=== PATIENT | female | born 1960 | race Caucasian/White ===

== ENCOUNTER 2019-04-28 08:54 | Emergency (ER) | payer BC ==
[2019-04-28] MEDS ORDERED: NA CHLORIDE 0.9% 1,000 ML ONE (09:28)
[2019-04-28 09:58] LABS: Absolute Lymphocytes (CBC) 0.8 K/uL (0.7-4.9); Basophils % 0.3 % (0-1.3); Hematocrit 39.3 % (36.0-45.0); Lymphocytes % 6.7 % (15.3-44.8); RBC Red Blood Cell Count 4.35 M/uL (3.86-4.86)
[2019-04-28 10:12] LABS: Barbiturates NEGATIVE (NEGATIVE); Benzodiazepines NEGATIVE (NEGATIVE); Cocaine NEGATIVE (NEGATIVE); METHAMPHETAM NEGATIVE (NEGATIVE); Methadone NEGATIVE (NEGATIVE); Opiates NEGATIVE (NEGATIVE); Phencyclidine NEGATIVE (NEGATIVE); THC Cannibis NEGATIVE (NEGATIVE)
[2019-04-28 10:13] LABS: ALT/SGPT 36 U/L (12-78); AST/SGOT 51 U/L (15-37); Albumin 2.5 g/dL (3.4-5.0); Alkaline Phosphatase 160 U/L (45-117); BUN Blood Urea Nitrogen 18 mg/dL (7-18); Bicarbonate 26 mmol/L (21-32); Bilirubin Total 2.3 mg/dL (0.2-1.0); Glucose Level 168 mg/dL (74-106); Magnesium 1.7 mg/dL (1.8-2.4); NT PRO-BNP 165 pg/mL (<125); Potassium 3.2 mmol/L (3.5-5.1); Protein, Total 7.4 g/dL (6.4-8.2); Sodium Level 134 mmol/L (136-145); Troponin (Emerg Dept Use Only) < 0.02 ng/mL (0.0-0.045)
[2019-04-28] MEDS ORDERED: CIPROFLOXACIN HCL 500 MG TAB ONE (10:16)
[2019-04-28] MEDS ORDERED: CEFTRIAXONE/SWI 1gm 2 GM/20 ML SYR ONE (10:16)
[2019-04-28 10:21] LABS: Protime INR 1.44
--- NOTE | 2019-04-28 10:27 | RAD REPORT ---
EXAM DESCRIPTION: CT - [id number] - 04/28/2019 9:54 am CLINICAL HISTORY: Trauma, head and neck injury. PAIN COMPARISON: No comparisons TECHNIQUE: Axial 5 mm thick images of the head were obtained. Axial 2 mm thick images of the cervical spine were obtained with sagittal and coronal reconstruction images generated and reviewed. All CT scans are performed using dose optimization technique as appropriate and may include automated exposure control or mA/KV adjustment according to patient size. FINDINGS: CT HEAD WITHOUT CONTRAST: No acute hemorrhage, hydrocephalus or extra-axial collection is identified.No areas of brain edema or midline shift. The paranasal sinuses and mastoids are clear.The calvarium is intact. CT CERVICAL SPINE WITHOUT CONTRAST: No fracture or subluxation.Disc thinning with small endplate osteophyte noted at C5-6 and C6-7.No pre vertebral soft tissues swelling is identified. IMPRESSION: No acute intracranial or cervical spine findings. Mild lower cervical spondylosis.
[2019-04-28] MEDS ORDERED: POTASSIUM 25 MEQ EFFERV TAB ONE (10:33)
[2019-04-28] MEDS ORDERED: MAGNESIUM SULFATE 1 gm IVPB 1 GM/100 ML BAG IV ONE (10:33)
--- NOTE | 2019-04-28 10:34 | RAD REPORT ---
EXAM DESCRIPTION: RAD - Chest Single View - 04/28/2019 10:24 am CLINICAL HISTORY: COUGH Chest pain. COMPARISON: Chest Single View dated 03/23/2017; CHEST SINGLE VIEW dated 03/29/2010; CHEST SINGLE VIEW d ated 09/21/2009; CHEST SINGLE VIEW dated 09/18/2009 FINDINGS: Portable technique limits examination quality. The lungs are grossly clear. The heart is normal in size. No displaced fractures. IMPRESSION: No acute intrathoracic process suspected.
--- NOTE | 2019-04-28 10:35 | RAD REPORT ---
EXAM DESCRIPTION: RAD - Femur Left - 04/28/2019 10:24 am CLINICAL HISTORY: Fall, leg pain COMPARISON: None. FINDINGS: No fracture is identified. There is no dislocation or periosteal reaction noted. No acute or suspicious bony finding. No air or foreign body in the soft tissues. Mild degenerative change at the knee joint which is partially imaged. No significant hip joint degenerative change. No significant soft tissue finding identifiable. IMPRESSION: Negative left femur examination for acute finding.
--- NOTE | 2019-04-28 10:37 | RAD REPORT ---
EXAM DESCRIPTION: RAD - Tib Fib Left - 04/28/2019 10:24 am CLINICAL HISTORY: Fall, left leg pain COMPARISON: None. FINDINGS: No fracture is identified. There is no dislocation or periosteal reaction noted. No acute or suspicious bony finding. Patient has mild medial compartment marginal spurring with as well as spu rring along the articular margins of the patella. Patella femoral joint space is slightly narrowed. J oint effusion is not suspected at the knee. Patient has a small plantar spur. No foreign body or other soft tissue abnormality. IMPRESSION: Left knee joint degenerative changes are present without acute finding seen. No acute left tib-fib finding.
[2019-04-28 10:45] LABS: Urine Blood 3+ (NEG); Urine Glucose NEGATIVE (NEG); Urine Protein 2+ (NEG); Urine pH 5.5 (5.0-7.0)
[2019-04-28 10:45] LABS: Blood Morphology Comment NOT SEEN (NOT SEEN); Platelet Estimate ADEQ; Urine White Blood Cell Casts OK
--- NOTE | 2019-04-28 10:52 | EDPHYS ---
Physician Documentation [facility] Name: Lisa Chanel Age: 59 yrs Sex: Female : 1960 Arrival Date: 04/28/2019 Time: 08:57 Bed 15 Private MD: Emile Tim E ED Physician Louis Bustos HPI: 04/28 09:19 This 59 yrs old Female presents to ER via Ambulatory with complaints of Head florentin Injury-Adult. 09:19 The patient or guardian reports pain, swelling, tenderness. The complaints affect the florentin left side of the back of head, left occipital area, left base of the skull, right side of the back of head, right occipital area and right base of the skull. Context of injury: The problem was sustained at home, resulted from a fall. Onset: The symptoms/episode began/occurred 4 day(s) ago. Associated signs and symptoms: Loss of consciousness: This patient did not experience any loss of consciousness. Pertinent positives: headache, generalized weakness. Severity of symptoms: At their worst the symptoms were mild, in the emergency department the symptoms are unchanged. The patient has not experienced similar symptoms in the past. Historical: - Allergies: 09:08 Codeine; hb - Home Meds: 09:08 amphetamin/Dextramphet 10mg 1 tab twice a day [Active]; gabapentin 300 mg Oral cap 1 hb cap 3 times per day [Active]; levothyroxine 125 mcg tab 1 tab once daily [Active]; Plavix 75 mg Oral tab 1 tab once daily [Active]; sertraline 50 mg Oral tab 1 tab once daily [Active]; atorvastatin 40 mg Oral tab 1 tab once daily [Active]; - PMHx: 09:08 Diabetes - IDDM; High Cholesterol; Hypertension; neuropathy; TIA; hb - Immunization history:: Adult Immunizations up to date. - Social history:: Smoking status: Patient/guardian denies using tobacco. - Ebola Screening: : No symptoms or risks identified at this time. - Family history:: not pertinent. ROS: 09:19 Constitutional: Negative for fever, chills, and weight loss, Eyes: Negative for injury, florentin pain, redness, and discharge, ENT: Negative for injury, pain, and discharge, Neck: Negative for injury, pain, and swelling, Cardiovascular: Negative for chest pain, palpitations, and edema, Respiratory: Negative for shortness of breath, cough, wheezing, and pleuritic chest pain, Abdomen/GI: Negative for abdominal pain, nausea, vomiting, diarrhea, and constipation, Back: Negative for injury and pain, : Negative for injury, bleeding, discharge, and swelling, Skin: Negative for injury, rash, and discoloration, Psych: Negative for depression, anxiety, suicide ideation, homicidal ideation, and hallucinations, Allergy/Immunology: Negative for hives, rash, and allergies, Endocrine: Negative for neck swelling, polydipsia, polyuria, polyphagia, and marked weight changes, Hematologic/Lymphatic: Negative for swollen nodes, abnormal bleeding, and unusual bruising. 09:19 MS/extremity: Positive for decreased range of motion, pain, tenderness, of the left leg. 09:19 Neuro: Positive for dizziness, headache, weakness. Exam: 09:19 Constitutional: This is a well developed, well nourished patient who is awake, alert, florentin and in no acute distress. Eyes: Pupils equal round and reactive to light, extra-ocular motions intact. Lids and lashes normal. Conjunctiva and sclera are non-icteric and not injected. Cornea within normal limits. Periorbital areas with no swelling, redness, or edema. ENT: Nares patent. No nasal discharge, no septal abnormalities noted. Tympanic membranes are normal and external auditory canals are clear. Oropharynx with no redness, swelling, or masses, exudates, or evidence of obstruction, uvula midline. Mucous membranes moist. Neck: Trachea midline, no thyromegaly or masses palpated, and no cervical lymphadenopathy. Supple, full range of motion without nuchal rigidity, or vertebral point tenderness. No Meningismus. Chest/axilla: Normal chest wall appearance and motion. Nontender with no deformity. No lesions are appreciated. Cardiovascular: Regular rate and rhythm with a normal S1 and S2. No gallops, murmurs, or rubs. Normal PMI, no JVD. No pulse deficits. Respiratory: Lungs have equal breath sounds bilaterally, clear to auscultation and percussion. No rales, rhonchi or wheezes noted. No increased work of breathing, no retractions or nasal flaring. Abdomen/GI: Soft, non-tender, with normal bowel sounds. No distension or tympany. No guarding or rebound. No evidence of tenderness throughout. Back: No spinal tenderness. No costovertebral tenderness. Full range of motion. Female : Normal external genitalia. Skin: Warm, dry with normal turgor. Normal color with no rashes, no lesions, and no evidence of cellulitis. MS/ Extremity: Pulses equal, no cyanosis. Neurovascular intact. Full, normal range of motion. Neuro: Awake and alert, GCS 15, oriented to person, place, time, and situation. Cranial nerves II-XII grossly intact. Motor strength 5/5 in all extremities. Sensory grossly intact. Cerebellar exam normal. Normal gait. Psych: Awake, alert, with orientation to person, place and time. Behavior, mood, and affect are within normal limits. 09:19 Head/face: Noted is contusion, that is superficial, tenderness, that is mild, of the left side of the back of head, left occipital area, left base of the skull, right side of the back of head, right occipital area and right base of the skull. 12:41 Abdomen/GI: Inspection: abdomen appears normal, Bowel sounds: normal, Palpation: [facility] [place] abdomen is soft and non-tender, Liver: no appreciated palpable abnormalities, Hernia: not appreciated, no ascites. Vital Signs: 09:08 BP 101 / 69; Pulse 101; Resp 16; Temp 97.8; Pulse Ox 100% ; Weight 104.33 kg; Height 5 hb ft. 8 in. (172.72 cm); Pain 7/10; 11:00 BP 108 / 68; Pulse 99; Resp 16 S; Pulse Ox 100% on R/A; jl7 12:59 BP 110 / 71; Pulse 97; Resp 16 S; Pulse Ox 100% on R/A; jl7 09:08 Body Mass Index 34.97 (104.33 kg, 172.72 cm) hb Nichols Coma Score: 09:07 Eye Response: spontaneous(4). Verbal Response: oriented(5). Motor Response: obeys commands(6). Total: 15. 09:19 Eye Response: spontaneous(4). Verbal Response: oriented(5). Motor Response: obeys [facility] [place] commands(6). Total: 15. MDM: 09:01 Patient medically screened. [facility] [place] 09:22 Data reviewed: vital signs, nurses notes, lab test result(s), EKG, radiologic studies, [facility] [place] CT scan, plain films. 04/28 09:19 Order name: Basic Metabolic Panel; Complete Time: 10:27 [facility] [place] 04/28 09:19 Order name: CBC with Diff; Complete Time: 10:50 [facility] [place] 04/28 09:19 Order name: LFT's; Complete Time: 10:27 [facility] [place] 04/28 09:19 Order name: Magnesium; Complete Time: 10:27 [facility] [place] 04/28 09:19 Order name: NT PRO-BNP; Complete Time: 10:27 [facility] [place] 04/28 09:19 Order name: PT-INR; Complete Time: 10:50 [facility] [place] 04/28 09:19 Order name: Troponin (emerg Dept Use Only); Complete Time: 10:27 [facility] [place] 04/28 09:19 Order name: XRAY Chest (1 view); Complete Time: 10:50 [facility] [place] 04/28 09:19 Order name: CT Head C Spine; Complete Time: 10:50 [facility] [place] 04/28 09:19 Order name: UDS; Complete Time: 10:27 [facility] [place] 04/28 10:02 Order name: Urine Culture [facility] [place] 04/28 10:08 Order name: Urine Dipstick--Ancillary (enter results); Complete Time: 10:50 04/28 10:28 Order name: AMMONIA; Complete Time: 12:27 [facility] [place] 04/28 10:45 Order name: CBC Smear Scan; Complete Time: 10:50 EDMS 04/28 09:19 Order name: EKG; Complete Time: 09:20 [facility] [place] 04/28 09:19 Order name: Cardiac monitoring; Complete Time: 09:49 [facility] [place] 04/28 09:19 Order name: EKG - Nurse/Tech; Complete Time: 09:49 [facility] [place] 04/28 09:19 Order name: IV Saline Lock; Complete Time: 09:49 [facility] [place] 04/28 09:19 Order name: Labs collected and sent; Complete Time: 09:49 [facility] [place] 04/28 09:19 Order name: O2 Per Protocol; Complete Time: 09:49 [facility] [place] 04/28 09:19 Order name: O2 Sat Monitoring; Complete Time: 09:49 [facility] [place] 04/28 09:19 Order name: Tib Fib Left XRAY; Complete Time: 10:50 [facility] [place] 04/28 09:19 Order name: Femur Left XRAY; Complete Time: 10:50 [facility] [place] 04/28 09:19 Order name: Urine Dipstick-Ancillary (obtain specimen); Complete Time: 10:53 florentin Administered Medications: 10:20 Drug: NS 0.9% 500 ml Route: IV; Rate: bolus; Site: right antecubital; 7 10:50 Follow up: Response: No adverse reaction; IV Status: Completed infusion; IV Intake: jl7 500ml 10:50 Drug: Potassium Effervescent Tablet 25 mEq Route: PO; jl7 12:41 Follow up: Response: No adverse reaction 7 10:55 Drug: Rocephin 2 grams Route: IV; Rate: per protocol; Site: right antecubital; jl7 10:58 Follow up: Response: No adverse reaction; IV Status: Completed infusion jl7 11:05 Drug: Cipro 500 mg Route: PO; jl7 12:41 Follow up: Response: No adverse reaction jl7 11:05 Drug: Magnesium Sulfate 1 grams Route: IVPB; Infused Over: 1 hrs; Site: right [facility] antecubital; 12:05 Follow up: Response: No adverse reaction; IV Status: Completed infusion [facility] 12:05 Drug: NS 0.9% 1000 ml Route: IV; Rate: 125 ml/hr; Site: right antecubital; 7 13:00 Follow up: Response: No adverse reaction; IV Status: Completed infusion jl7 12:52 Drug: Lactulose 30 grams Volume: 45 ml; Route: PO; [facility] 13:03 Follow up: Response: No adverse reaction [facility] Disposition: 04/28/19 10:51 Discharged to Home. Impression: Fall due to bumping against object, Superficial injury of head, Strain of muscle, fascia and tendon at neck level, Pain in left leg, Type 1 diabetes mellitus, Urinary tract infection, site not specified, Hypokalemia, Hypomagnesemia, Encephalopathy, unspecified. - Condition is Stable. - Discharge Instructions: Potassium Content of Foods, Head Injury, Adult, Hypomagnesemia, Muscle Strain, Musculoskeletal Pain, Urinary Tract Infection, Adult, Hepatic Encephalopathy, Knee Pain, Urinary Tract Infection, Adult, [id number], Head Injury, Adult, [id number], Hypokalemia. - Prescriptions for Ibuprofen 600 mg Oral Tablet - take 1 tablet by ORAL route every 8 hours As needed take with food; 20 tablet. Cipro 500 mg Oral Tablet - take 1 tablet by ORAL route every 12 hours for 7 days; 14 tablet. Lactulose 10 gram/15 mL Oral Solution - take 30 milliliter by ORAL route once daily; 300 milliliter. - Medication Reconciliation Form, Thank You Letter, Antibiotic Education, Prescription Opioid Use, Family Work Release form. - Follow up: Emile Tim; When: 2 - 3 days; Reason: Recheck today's complaints, Continuance of care, Re-evaluation by your physician. Follow up: Cisco Asif MD; When: 2 - 3 days; Reason: Recheck today's complaints, Re-evaluation by your physician. - Problem is new. - Symptoms have improved. Signatures: Dispatcher [employer] EDMS Louis Bustos MD MD cha Baxter, Heather, RN RN Kavon Tay RN RN jl7 Corrections: (The following items were deleted from the chart) 10:53 10:51 04/28/2019 10:51 Discharged to Home. Impression: Fall due to bumping against florentin object; Superficial injury of head; Strain of muscle, fascia and tendon at neck level; Pain in left leg; Type 1 diabetes mellitus; Urinary tract infection, site not specified; Hypokalemia; Hypomagnesemia. Condition is Stable. Discharge Instructions: Head Injury, Adult, Muscle Strain, Musculoskeletal Pain, Knee Pain, Head Injury, Adult, [id number], Urinary Tract Infection, Adult, Urinary Tract Infection, Adult, [id number], Potassium Content of Foods, Hypomagnesemia, Hypokalemia. Prescriptions for Ibuprofen 600 mg Oral Tablet - take 1 tablet by ORAL route every 8 hours As needed take with food; 20 tablet, Cipro 500 mg Oral Tablet - take 1 tablet by ORAL route every 12 hours for 7 days; 14 tablet. and Forms are Medication Reconciliation Form, Thank You Letter, Antibiotic Education, Prescription Opioid Use. Follow up: Emile Tim; When: 2 - 3 days; Reason: Recheck today's complaints, Continuance of care, Re-evaluation by your physician. Problem is new. Symptoms have improved. [facility] [place] 12:34 10:53 04/28/2019 10:51 Discharged to Home. Impression: Fall due to bumping against florentin object; Superficial injury of head; Strain of muscle, fascia and tendon at neck level; Pain in left leg; Type 1 diabetes mellitus; Urinary tract infection, site not specified; Hypokalemia; Hypomagnesemia. Condition is Stable. Discharge Instructions: Head Injury, Adult, Muscle Strain, Musculoskeletal Pain, Knee Pain, Head Injury, Adult, [id number], Urinary Tract Infection, Adult, Urinary Tract Infection, Adult, [id number], Potassium Content of Foods, Hypomagnesemia, Hypokalemia. Prescriptions for Ibuprofen 600 mg Oral Tablet - take 1 tablet by ORAL route every 8 hours As needed take with food; 20 tablet, Cipro 500 mg Oral Tablet - take 1 tablet by ORAL route every 12 hours for 7 days; 14 tablet. and Forms are Medication Reconciliation Form, Thank You Letter, Antibiotic Education, Prescription Opioid Use. Follow up: Emile Tim; When: 2 - 3 days; Reason: Recheck today's complaints, Continuance of care, Re-evaluation by your physician. Follow up: Cisco Asif; When: 2 - 3 days; Reason: Recheck today's complaints, Re-evaluation by your physician. Problem is new. Symptoms have improved. florentin 13:07 12:34 04/28/2019 10:51 Discharged to Home. Impression: Fall due to bumping against jl7 object; Superficial injury of head; Strain of muscle, fascia and tendon at neck level; Pain in left leg; Type 1 diabetes mellitus; Urinary tract infection, site not specified; Hypokalemia; Hypomagnesemia; Encephalopathy, unspecified. Condition is Stable. Discharge Instructions: Head Injury, Adult, Muscle Strain, Musculoskeletal Pain, Knee Pain, Head Injury, Adult, [id number], Urinary Tract Infection, Adult, Urinary Tract Infection, Adult, [id number], Potassium Content of Foods, Hypomagnesemia, Hypokalemia. Prescriptions for Ibuprofen 600 mg Oral Tablet - take 1 tablet by ORAL route every 8 hours As needed take with food; 20 tablet, Cipro 500 mg Oral Tablet - take 1 tablet by ORAL route every 12 hours for 7 days; 14 tablet. and Forms are Medication Reconciliation Form, Thank You Letter, Antibiotic Education, Prescription Opioid Use. Follow up: Emile Tim; When: 2 - 3 days; Reason: Recheck today's complaints, Continuance of care, Re-evaluation by your physician. Follow up: Cisco Asfi; When: 2 - 3 days; Reason: Recheck today's complaints, Re-evaluation by your physician. Problem is new. Symptoms have improved. florentin
--- NOTE | 2019-04-28 10:52 | ER ---
Nurse's Notes [facility] Name: Lisa Chanel Age: 59 yrs Sex: Female : 1960 Arrival Date: 04/28/2019 Time: 08:57 Bed 15 Private MD: Emile Tim E Diagnosis: Fall due to bumping against object;Superficial injury of head;Strain of muscle, fascia and tendon at neck level;Pain in left leg;Type 1 diabetes mellitus;Urinary tract infection, site not specified;Hypokalemia;Hypomagnesemia;Encephalopathy, unspecified Presentation: 04/28 09:07 Presenting complaint: Hit head on toilet 3 days ago, c/o headache, dizziness, and hb blurred vision. Unknown LOC. Transition of care: patient was not received from another setting of care. Mechanism of Injury: resulted from a fall, from a standing position. Onset of symptoms was April 25, 2019. Risk Assessment: Do you want to hurt yourself or someone else? Patient reports no desire to harm self or others. Initial Sepsis Screen: Does the patient meet any 2 criteria? No. Patient's initial sepsis screen is negative. Does the patient have a suspected source of infection? No. Patient's initial sepsis screen is negative. Care prior to arrival: None. 09:07 Method Of Arrival: Ambulatory hb 09:07 Acuity: GUY 3 hb Historical: - Allergies: 09:08 Codeine; hb - Home Meds: 09:08 amphetamin/Dextramphet 10mg 1 tab twice a day [Active]; gabapentin 300 mg Oral cap 1 hb cap 3 times per day [Active]; levothyroxine 125 mcg tab 1 tab once daily [Active]; Plavix 75 mg Oral tab 1 tab once daily [Active]; sertraline 50 mg Oral tab 1 tab once daily [Active]; atorvastatin 40 mg Oral tab 1 tab once daily [Active]; - PMHx: 09:08 Diabetes - IDDM; High Cholesterol; Hypertension; neuropathy; TIA; hb - Immunization history:: Adult Immunizations up to date. - Social history:: Smoking status: Patient/guardian denies using tobacco. - Ebola Screening: : No symptoms or risks identified at this time. - Family history:: not pertinent. Screenin:09 Abuse screen: Denies threats or abuse. Denies injuries from another. Nutritional hb screening: No deficits noted. Tuberculosis screening: No symptoms or risk factors identified. 10:00 Fall Risk IV access (20 points). Total Chaney Fall Scale indicates No Risk (0-24 pts). jl7 Assessment: 09:30 General: Appears in no apparent distress. uncomfortable, Behavior is calm, cooperative, jl7 drowsy. Pain: Complains of pain in LACEY Pain does not radiate. Pain currently is 7 out of 10 on a pain scale. Quality of pain is described as aching, Pain began 2-3 days ago. Is continuous. Neuro: Level of Consciousness is awake, alert, obeys commands, Oriented to person, place, time, situation. Cardiovascular: Patient's skin is warm and dry. Respiratory: Airway is patent Respiratory effort is even, unlabored, Respiratory pattern is regular, symmetrical. Derm: Skin is pink, warm \T\ dry. 10:30 Reassessment: Patient appears in no apparent distress at this time. No changes from jl7 previously documented assessment. Patient and/or family updated on plan of care and expected duration. Pain level reassessed. Patient is alert, oriented x 3, equal unlabored respirations, skin warm/dry/pink. 11:05 Reassessment: Pt will be discharged once medication is done infusing. jl7 12:45 Reassessment: Pt awaiting ERD to discuss plan of care. jl7 12:50 Reassessment: Dr. Bustos at bedside discussing plan of care. jl7 Vital Signs: 09:08 BP 101 / 69; Pulse 101; Resp 16; Temp 97.8; Pulse Ox 100% ; Weight 104.33 kg; Height 5 hb ft. 8 in. (172.72 cm); Pain 7/10; 11:00 BP 108 / 68; Pulse 99; Resp 16 S; Pulse Ox 100% on R/A; jl7 12:59 BP 110 / 71; Pulse 97; Resp 16 S; Pulse Ox 100% on R/A; jl7 09:08 Body Mass Index 34.97 (104.33 kg, 172.72 cm) hb Juliette Coma Score: 09:07 Eye Response: spontaneous(4). Verbal Response: oriented(5). Motor Response: obeys hb commands(6). Total: 15. 09:19 Eye Response: spontaneous(4). Verbal Response: oriented(5). Motor Response: obeys florentin commands(6). Total: 15. ED Course: 08:57 Patient arrived in ED. as 08:57 Emile Tim MD is Private Physician. as 09:01 Louis Bustos MD is Attending Physician. florentin 09:08 Triage completed. hb 09:08 Arm band placed on. hb 09:23 Kavon Hernandez, RN is Primary Nurse. jl7 09:33 EKG done, by surfacing technician. reviewed by Louis Bustos MD. at1 09:55 CT Head C Spine In Process Unspecified. EDMS 09:58 Initial lab(s) drawn, by id, sent to lab. Urine collected: clean catch specimen, clear. kj1 Inserted saline lock: 22 gauge in right antecubital area, using aseptic technique. 10:00 Patient has correct armband on for positive identification. Placed in gown. Bed in low jl7 position. Call light in reach. Side rails up X2. ekg monitor on. Pulse ox on. NIBP on. Warm blanket given. 10:23 XRAY Chest (1 view) In Process Unspecified. EDMS 10:23 Tib Fib Left XRAY In Process Unspecified. EDMS 10:23 Femur Left XRAY In Process Unspecified. EDMS 10:51 Emile Tim MD is Referral Physician. florentin 10:52 Cisco Asif MD is Referral Physician. florentin 13:06 No provider procedures requiring assistance completed. IV discontinued, intact, jl7 bleeding controlled, No redness/swelling at site. Pressure dressing applied. Administered Medications: 10:20 Drug: NS 0.9% 500 ml Route: IV; Rate: bolus; Site: right antecubital; jl7 10:50 Follow up: Response: No adverse reaction; IV Status: Completed infusion; IV Intake: jl7 500ml 10:50 Drug: Potassium Effervescent Tablet 25 mEq Route: PO; jl7 12:41 Follow up: Response: No adverse reaction jl7 10:55 Drug: Rocephin 2 grams Route: IV; Rate: per protocol; Site: right antecubital; jl7 10:58 Follow up: Response: No adverse reaction; IV Status: Completed infusion jl7 11:05 Drug: Cipro 500 mg Route: PO; jl7 12:41 Follow up: Response: No adverse reaction jl7 11:05 Drug: Magnesium Sulfate 1 grams Route: IVPB; Infused Over: 1 hrs; Site: right 7 antecubital; 12:05 Follow up: Response: No adverse reaction; IV Status: Completed infusion 12:05 Drug: NS 0.9% 1000 ml Route: IV; Rate: 125 ml/hr; Site: right antecubital; jl7 13:00 Follow up: Response: No adverse reaction; IV Status: Completed infusion 12:52 Drug: Lactulose 30 grams Volume: 45 ml; Route: PO; jl7 13:03 Follow up: Response: No adverse reaction jl Intake: 10:50 IV: 500ml; Total: 500ml. Outcome: 10:51 Discharge ordered by . florentin 13:06 Discharged to home via wheelchair, with family. [facility] 13:06 Condition: stable 13:06 Discharge instructions given to patient, Instructed on discharge instructions, follow up and referral plans. medication usage, Demonstrated understanding of instructions, follow-up care, medications, Prescriptions given X 3. 13:07 Patient left the ED. Signatures: Dispatcher [employer] EDMS Louis Bustos MD MD cha Martinez, Amelia as Gonzales, Amanda, gallery or museum guide EKG Tat1 Za Solis RN RN hb Leal, Jahala, RN RN jl7 Nurys Snell kj1 Corrections: (The following items were deleted from the chart) 12:40 12:37 Response: No adverse reaction; IV Status: Completed infusion [facility]
--- NOTE | 2019-04-28 12:12 | EKG ---
Test Date: 2019-04-28 Test Time: 09:26:17 Coil Winder Hand: JENNIFER MEASUREMENT RESULTS: Intervals: Rate: 91 SC: 150 QRSD: 106 QT: 390 QTc: 479 Wendel: P: 1 SC: 150 QRS: -51 T: 61 INTERPRETIVE STATEMENTS: Normal sinus rhythm Left anterior fascicular block Moderate voltage criteria for LVH, may be normal variant Abnormal ECG Compared to ECG 03/23/2017 14:44:23 Left ventricular hypertrophy now present Myocardial infarct finding no longer present Electronically Signed On 04-28-19 12:10:11 CDT by Michael Alex
[2019-04-28] MEDS ORDERED: LACTULOSE 20 GM/30 ML UCUP ONE (12:33)
[2019-04-28 13:14] VITALS: TEMP 97.8; O2SAT 100
[2019-04-28 13:17] VITALS: BP 110/71
== END 2019-04-28 13:07 | disposition home or self-care (01) ==
LOC: ER 08:54
DX: S00.90XA Unspecified superficial injury of unspecified part of head, initial encounter (principal); S16.1XXA Strain of muscle, fascia and tendon at neck level, initial encounter; M79.605 Pain in left leg; N39.0 Urinary tract infection, site not specified; E87.6 Hypokalemia; E83.42 Hypomagnesemia; G93.40 Encephalopathy, unspecified; W19.XXXA Unspecified fall, initial encounter; Y93.9 Activity, unspecified; Y92.009 Unspecified place in unspecified non-institutional (private) residence as the place of occurrence of the external cause; I10 Essential (primary) hypertension; E78.00 Pure hypercholesterolemia, unspecified; Z79.01 Long term (current) use of anticoagulants; Z88.5 Allergy status to narcotic agent
CPT/HCPCS: 93005; 87088; 85025; 87086; 80048; 36415; 82140; 83735; 85610; 80076; 80307 ×8; 81003; 84484; 83880; 70450; 72125; 71045; 73552; 73590; J3475; J0696; J7030; 87077; 87186; 96361; 96365; 96375; 99284

== ENCOUNTER 2021-01-19 10:56 | Inpatient (IN) | payer BC ==
[2021-01-19 11:41] LABS: Absolute Lymphocytes (CBC) 0.5 K/uL (0.7-4.9)
[2021-01-19 11:45] LABS: Protime INR 1.49
[2021-01-19 11:49] LABS: Basophils % 0.6 % (0-1.3); Hematocrit 29.2 % (36.0-45.0); Lymphocytes % 28.7 % (15.3-44.8); MPV 9.4 fL (7.6-11.3); RBC Red Blood Cell Count 3.27 M/uL (3.86-4.86)
--- NOTE | 2021-01-19 11:58 | RAD REPORT ---
EXAM DESCRIPTION: RAD - Chest Single View - 01/19/2021 11:46 am CLINICAL HISTORY: DYSPNEA COMPARISON: April 2019 TECHNIQUE: AP portable chest image was obtained 01/19/2021 11:46 am . FINDINGS: Interstitial and alveolar opacities are present in the lower lung self with prominent up per lung field interstitial opacification. Cardiomegaly is present, increased from the prior study. V ascular engorgement is seen. Trachea is midline. No pneumothorax seen. Left pleural effusion is ident ifiable. No acute bony abnormality seen. No acute aortic findings suspected. IMPRESSION: Chest findings favor CHF/volume overload. The extensive airspace opacification could indicate acute infection. COVID-19 pneumonia cannot be exc luded in this current clinical environment.
[2021-01-19 12:09] LABS: Albumin 2.4 g/dL (3.4-5.0); Bilirubin Direct 1.2 mg/dL (0-0.2); Bilirubin Total 2.6 mg/dL (0.2-1.0); C-Reactive Protein 32.3 mg/L (<3.00); Potassium 3.5 mmol/L (3.5-5.1); Protein, Total 6.9 g/dL (6.4-8.2); Troponin (Emerg Dept Use Only) 0.12 ng/mL (0.0-0.045)
--- NOTE | 2021-01-19 12:30 | EDPHYS ---
Physician Documentation [facility] Name: Lisa Chanel Age: 60 yrs Sex: Female : 1960 Arrival Date: 01/19/2021 Time: 10:59 Bed 23 Private MD: ED Physician Ryland Holland HPI: 01/19 12:44 This 60 yrs old Female presents to ER via Wheelchair with complaints of jr8 Breathing Difficulty. 12:44 The patient has shortness of breath at rest. Onset: The symptoms/episode began/occurred jr8 gradually, 1 week(s) ago, and became worse and became persistent. Duration: The symptoms are continuous. The patient's shortness of breath is aggravated by light activity, walking. Associated signs and symptoms: Pertinent positives: non-productive cough, fever. Severity of symptoms: At their worst the symptoms were moderate in the emergency department the symptoms are unchanged. The patient has not experienced similar symptoms in the past. The patient has not recently seen a physician. Stated that her family all had COVID. Was around them and started to feel symptomatic about one week ago. Now progressively getting worse . Historical: - Allergies: 11:13 Codeine; sv - PMHx: 11:13 Diabetes - IDDM; High Cholesterol; Hypertension; neuropathy; TIA; Asthma; sv - Immunization history:: Client reports having NOT received the Covid vaccine. - Social history:: Smoking status: Patient denies any tobacco usage or history of. ROS: 12:44 Eyes: Negative for injury, pain, redness, and discharge, ENT: Negative for injury, jr8 pain, and discharge, Neck: Negative for injury, pain, and swelling, Cardiovascular: Negative for chest pain, palpitations, and edema, Abdomen/GI: Negative for abdominal pain, nausea, vomiting, diarrhea, and constipation, Back: Negative for injury and pain, MS/Extremity: Negative for injury and deformity, Skin: Negative for injury, rash, and discoloration, Neuro: Negative for headache, weakness, numbness, tingling, and seizure. 12:44 Constitutional: Positive for body aches, chills, fever, malaise. 12:44 Respiratory: Positive for cough, with no reported sputum, shortness of breath, wheezing. Exam: 12:44 Eyes: Pupils equal round and reactive to light, extra-ocular motions intact. Lids and jr8 lashes normal. Conjunctiva and sclera are non-icteric and not injected. Cornea within normal limits. Periorbital areas with no swelling, redness, or edema. ENT: Nares patent. No nasal discharge, no septal abnormalities noted. Tympanic membranes are normal and external auditory canals are clear. Oropharynx with no redness, swelling, or masses, exudates, or evidence of obstruction, uvula midline. Mucous membranes moist. Neck: Trachea midline, no thyromegaly or masses palpated, and no cervical lymphadenopathy. Supple, full range of motion without nuchal rigidity, or vertebral point tenderness. No Meningismus. Cardiovascular: Regular rate and rhythm with a normal S1 and S2. No gallops, murmurs, or rubs. Normal PMI, no JVD. No pulse deficits. Abdomen/GI: Soft, non-tender, with normal bowel sounds. No distension or tympany. No guarding or rebound. No evidence of tenderness throughout. Back: No spinal tenderness. No costovertebral tenderness. Full range of motion. Skin: Warm, dry with normal turgor. Normal color with no rashes, no lesions, and no evidence of cellulitis. MS/ Extremity: Pulses equal, no cyanosis. Neurovascular intact. Full, normal range of motion. Neuro: Awake and alert, GCS 15, oriented to person, place, time, and situation. Motor strength 5/5 in all extremities. Sensory grossly intact. 12:44 Respiratory: mild respiratory distress is noted, Respirations: tachypnea, that is moderate, Breath sounds: rales, that are mild, are located in both bases. Vital Signs: 11:10 BP 137 / 59; Pulse 86; Resp 42; Pulse Ox 87% on R/A; Weight 105.23 kg; Height 5 ft. 9 ca1 in. (175.26 cm); Pain 8/10; 11:41 BP 135 / 55; Pulse 76; Resp 26; Temp 98.8; Pulse Ox 100% on 4 lpm NC; ca1 12:49 Pulse 79; Resp 26; Pulse Ox 98% on 2 lpm NC; ca1 12:54 BP 127 / 58; ca1 13:55 BP 133 / 71; Pulse 77; Resp 24; Pulse Ox 100% on 2 lpm NC; ca1 14:55 BP 116 / 68; Pulse 81; Resp 20; Pulse Ox 99% on R/A; ca1 16:11 BP 106 / 60; Pulse 76; Resp 19 S; Pulse Ox 99% on 2 lpm NC; ca1 11:10 Body Mass Index 34.26 (105.23 kg, 175.26 cm) ca1 11:10 Pt placed on O2 per NC. ca1 MDM: 11:05 Patient medically screened. [facility] 12:44 Data reviewed: vital signs, nurses notes, lab test result(s), EKG, radiologic studies, [facility] CT scan, plain films. Data interpreted: Pulse oximetry: on room air is 80 %. Interpretation: hypoxia. Plan: O2 by NC applied. Counseling: I had a detailed discussion with the patient and/or guardian regarding: the historical points, exam findings, and any diagnostic results supporting the discharge/admit diagnosis, lab results, radiology results, the need for further work-up and treatment in the hospital. 01/19 11:15 Order name: BMP [facility] 01/19 11:15 Order name: Blood Culture Adult (2) [facility] 01/19 11:15 Order name: C-Reactive Protein; Complete Time: 12:19 [facility] 01/19 11:15 Order name: CBC with Diff; Complete Time: 13:24 01/19 11:15 Order name: D-Dimer; Complete Time: 12:08 [facility] 01/19 11:15 Order name: Ferritin; Complete Time: 12:19 01/19 11:15 Order name: Flu; Complete Time: 12:41 01/19 11:15 Order name: LFT's; Complete Time: 12:19 [facility] 01/19 11:15 Order name: Lactate; Complete Time: 12:08 01/19 11:15 Order name: PT-INR; Complete Time: 12:08 01/19 11:15 Order name: Procalcitonin; Complete Time: 13:13 01/19 11:15 Order name: Ptt, Activated; Complete Time: 12:08 01/19 11:15 Order name: Troponin (emerg Dept Use Only); Complete Time: 12:19 01/19 11:15 Order name: CXR XRAY; Complete Time: 12:08 [facility] 01/19 11:15 Order name: EKG; Complete Time: 11:16 01/19 11:15 Order name: Cardiac monitoring; Complete Time: 11:30 8 01/19 11:16 Order name: Basic Metabolic Panel; Complete Time: 12:19 EDMS 01/19 11:16 Order name: Blood Culture EDNM 01/19 11:40 Order name: Glucose, Ancillary Testing; Complete Time: 12:08 EDMS 01/19 11:52 Order name: Manual Differential; Complete Time: 13:24 EDMS 01/19 12:09 Order name: CT Chest For PE Angio; Complete Time: 12:56 8 01/19 13:11 Order name: SARS-COV-2 RT PCR; Complete Time: 13:13 EDMS 01/19 13:13 Order name: Echo w/ Doppler jr 01/19 14:08 Order name: Urine Dipstick-Ancillary; Complete Time: 14:11 EDMS 01/19 14:11 Order name: CONS Physician Consult EDNM 01/19 15:59 Order name: Lactate Sepsis 2 HR Follow-up; Complete Time: 16:13 EDNM 01/19 11:15 Order name: Droplet/Contact Precautions; Complete Time: 11:30 [facility] 01/19 11:15 Order name: EKG - Nurse/Tech; Complete Time: 11:39 8 01/19 11:15 Order name: IV Start; Complete Time: 11:30 8 01/19 11:15 Order name: Labs collected and sent; Complete Time: 11:30 8 01/19 11:15 Order name: O2 Per Protocol; Complete Time: 11:30 8 01/19 11:15 Order name: O2 Sat Monitoring; Complete Time: 11:30 [facility] 01/19 11:15 Order name: Urine Dipstick-Ancillary (obtain specimen); Complete Time: 16:37 jr8 Administered Medications: 12:53 Drug: SOLU-Medrol (methylPrednisoLONE) 125 mg Route: IVP; Site: right antecubital; ca1 14:18 Follow up: Response: No adverse reaction ca1 12:54 Drug: Lovenox (enoxaparin) 1 mg/kg Route: Sub-Q; Site: right lower abdomen; ca1 14:18 Follow up: Response: No adverse reaction ca1 13:31 Drug: Lasix (furosemide) 40 mg Route: IVP; Site: right antecubital; ca1 14:19 Follow up: Response: No adverse reaction ca1 Disposition: 18:21 Co-signature as Attending Physician, Ryland Holland MD. rn Disposition Summary: 01/19/21 12:29 Hospitalization Ordered Hospitalization Status: Inpatient Admission jr8 Provider: Salvador Holland Condition: Fair jr8 Problem: new jr8 Symptoms: have improved jr8 Bed/Room Type: Standard jr8 Location: Telemetry/MedSurg (Inpatient)(01/19/21 16:31) Room Assignment: [facility](01/19/21 16:31) Diagnosis - Pneumonia due to SARS-associated coronavirus jr8 - Acute respiratory failure with hypoxia jr8 Forms: - Medication Reconciliation Form jr8 - SBAR form jr8 Signatures: Dispatcher [employer] EDMS Irene Fall, RN RN Ryland Holland MD MD rn Smirch, Shelby, RN RN Neil Lopez PA PA jr8 Adali, JEREMÍAS Vazquez RN ca1 Corrections: (The following items were deleted from the chart) 11:30 11:15 Rodriguez ordered. jr8 ca1 12:08 11:16 CORONAVIRUS+MR.LAB.BRZ ordered. EDMS EDMS 15:38 12:29 Telemetry/MedSurg (Inpatient) jr8 ss 15:38 12:29 jr8 ss 16:31 15:38 [facility] ER HOLD ss ss 16:31 15:38 ERHOLD- ss ss
--- NOTE | 2021-01-19 12:30 | ER ---
Nurse's Notes [facility] Name: Lisa Chanel Age: 60 yrs Sex: Female : 1960 Arrival Date: 01/19/2021 Time: 10:59 Bed 23 Private MD: Diagnosis: Pneumonia due to SARS-associated coronavirus;Acute respiratory failure with hypoxia Presentation: 01/19 11:10 Chief complaint: Patient states: SOB, runny nose, fever, missael lung pain, and productive sv cough x 2 days. Family members recently tested COVID+. Coronavirus screen: Client denies travel out of the [place] in the last 14 days. Client presents with at least one sign or symptom that may indicate coronavirus-19. Standard/surgical mask placed on the client. Provider contacted for isolation considerations. Ebola Screen: No symptoms or risks identified at this time. Initial Sepsis Screen: Does the patient meet any 2 criteria? RR > 20 per min. No. Patient's initial sepsis screen is negative. Does the patient have a suspected source of infection? Yes: Productive cough/pneumonia. Risk Assessment: Do you want to hurt yourself or someone else? Patient reports no desire to harm self or others. Onset of symptoms was January 17, 2021. 11:10 Method Of Arrival: Wheelchair sv 11:10 Acuity: GUY 2 sv Triage Assessment: 11:13 General: Appears in no apparent distress. uncomfortable, Behavior is calm, cooperative, sv appropriate for age. Pain: Complains of pain in back. Neuro: Level of Consciousness is awake, alert, obeys commands, Oriented to person, place, time, situation. Respiratory: Reports shortness of breath at rest on exertion cough that is productive, Respiratory effort is even, Respiratory pattern is tachypnea Onset: The symptoms/episode began/occurred 2 days ago, the patient has moderate shortness of breath. Historical: - Allergies: 11:13 Codeine; sv - PMHx: 11:13 Diabetes - IDDM; High Cholesterol; Hypertension; neuropathy; TIA; Asthma; sv - Immunization history:: Client reports having NOT received the Covid vaccine. - Social history:: Smoking status: Patient denies any tobacco usage or history of. Screenin:40 Abuse screen: Denies threats or abuse. Denies injuries from another. Nutritional ca1 screening: No deficits noted. Tuberculosis screening: No symptoms or risk factors identified. Fall Risk IV access (20 points). Total Chaney Fall Scale indicates No Risk (0-24 pts). Assessment: 11:14 Reassessment: Code Sepsis called. sv 11:44 General: Appears distressed, uncomfortable, obese, Behavior is calm, cooperative, ca1 appropriate for age. Pain: Complains of pain in back, R ear Pain currently is 6 out of 10 on a pain scale. Pain began 2-3 days ago. Neuro: Level of Consciousness is awake, alert, obeys commands, Oriented to person, place, time, situation. Cardiovascular: Heart tones S1 S2 present Capillary refill < 3 seconds Patient's skin is warm and dry. Rhythm is sinus rhythm. Respiratory: Airway is patent Respiratory effort is even, labored, shallow, Respiratory pattern is regular, symmetrical, tachypnea Breath sounds are clear bilaterally. GI: Abdomen is round obese, Bowel sounds present X 4 quads. Abd is soft and non tender X 4 quads. : No signs and/or symptoms were reported regarding the genitourinary system. EENT: Reports pain in right ear. Derm: Skin is intact, is healthy with good turgor, Skin is pink, warm \T\ dry. Musculoskeletal: Circulation, motion, and sensation intact. Capillary refill < 3 seconds. 12:00 Respiratory: Airway is patent Respiratory effort is even, unlabored, Respiratory ca1 pattern is regular, symmetrical. 12:00 Reassessment: Patient appears in no apparent distress at this time. Patient and/or ca1 family updated on plan of care and expected duration. Pain level reassessed. Patient is alert, oriented x 3, equal unlabored respirations, skin warm/dry/pink. General: Appears in no apparent distress. comfortable, Behavior is. 12:49 Reassessment: Patient appears in no apparent distress at this time. Patient and/or ca1 family updated on plan of care and expected duration. Pain level reassessed. Patient is alert, oriented x 3, equal unlabored respirations, skin warm/dry/pink. 14:17 Reassessment: Patient appears in no apparent distress at this time. Patient and/or ca1 family updated on plan of care and expected duration. Pain level reassessed. Patient is alert, oriented x 3, equal unlabored respirations, skin warm/dry/pink. Guest Request Runner at bedside. Reassessment:. 15:30 Reassessment: Patient appears in no apparent distress at this time. Patient and/or ca1 family updated on plan of care and expected duration. Pain level reassessed. Patient is alert, oriented x 3, equal unlabored respirations, skin warm/dry/pink. Patient states feeling better. Patient states symptoms have improved. Vital Signs: 11:10 BP 137 / 59; Pulse 86; Resp 42; Pulse Ox 87% on R/A; Weight 105.23 kg; Height 5 ft. 9 ca1 in. (175.26 cm); Pain 8/10; 11:41 BP 135 / 55; Pulse 76; Resp 26; Temp 98.8; Pulse Ox 100% on 4 lpm NC; ca1 12:49 Pulse 79; Resp 26; Pulse Ox 98% on 2 lpm NC; ca1 12:54 BP 127 / 58; ca1 13:55 BP 133 / 71; Pulse 77; Resp 24; Pulse Ox 100% on 2 lpm NC; ca1 14:55 BP 116 / 68; Pulse 81; Resp 20; Pulse Ox 99% on R/A; ca1 16:11 BP 106 / 60; Pulse 76; Resp 19 S; Pulse Ox 99% on 2 lpm NC; ca1 11:10 Body Mass Index 34.26 (105.23 kg, 175.26 cm) ca1 11:10 Pt placed on O2 per NC. ca1 ED Course: 10:59 Patient arrived in ED. rg4 11:05 Neil Lopez PA is PHCP. jr8 11:05 Ryland Holland MD is Attending Physician. jr8 11:12 Triage completed. sv 11:13 Arm band placed on. sv 11:25 Inserted saline lock: 22 gauge in right antecubital area, using aseptic technique. ca1 Blood collected. 11:25 Initial lab(s) drawn, by me, sent to lab. First set of blood cultures drawn by me. ca1 11:29 Taylor Bro, JEREMÍAS is Primary Nurse. ca1 11:30 Second set of blood cultures drawn by lab staff. ca1 11:40 Patient has correct armband on for positive identification. Placed in gown. Bed in low ca1 position. Call light in reach. Side rails up X2. mortgage protection specialist on. Pulse ox on. NIBP on. Warm blanket given. Head of bed elevated. 11:46 CXR XRAY In Process Unspecified. EDMS 12:28 Salvador Holland MD is Hospitalizing Provider. jr8 12:44 CT Chest For PE Angio In Process Unspecified. EDMS 15:41 Repeat lab(s) drawn. by me, sent to lab. ca1 15:41 No provider procedures requiring assistance completed. Patient admitted, IV remains in ca1 place. Administered Medications: 12:53 Drug: SOLU-Medrol (methylPrednisoLONE) 125 mg Route: IVP; Site: right antecubital; ca1 14:18 Follow up: Response: No adverse reaction ca1 12:54 Drug: Lovenox (enoxaparin) 1 mg/kg Route: Sub-Q; Site: right lower abdomen; ca1 14:18 Follow up: Response: No adverse reaction ca1 13:31 Drug: Lasix (furosemide) 40 mg Route: IVP; Site: right antecubital; ca1 14:19 Follow up: Response: No adverse reaction ca1 Outcome: 12:29 Decision to Hospitalize by Provider. jr8 16:11 Admitted to ER Hold. Please see [facility] for further documentation. ca1 16:11 Condition: stable 16:11 Instructed on the need for admit. 16:48 Admitted to Tele accompanied by tech, via wheelchair, room 402, with oxygen, with ca1 chart, Report called to JEREMÍAS Schaeffer 17:00 Patient left the ED. ca1 Signatures: Dispatcher [employer] EDIrene David, RN RN Neil Lopez PA PA jr8 Hilaria Rivera rg4 Taylor Bro RN RN ca1 Corrections: (The following items were deleted from the chart) 11:13 11:10 BP 137 / 59; Pulse 86bpm; Resp 42bpm; Pulse Ox 87% RA; 105.23 kg; Height 5 ft. 9 sv in.; BMI: 34.2; Pain 8/10; sv 12:49 11:44 Respiratory: Airway is patent Respiratory effort is even, unlabored, Respiratory ca1 pattern is regular, symmetrical, Breath sounds are clear bilaterally. ca1 12:49 12:48 Reassessment: Patient appears in no apparent distress at this time. Patient ca1 and/or family updated on plan of care and expected duration. Pain level reassessed. Patient is alert, oriented x 3, equal unlabored respirations, skin warm/dry/pink. ca1 12:49 12:48 Respiratory: Airway is patent Respiratory effort is even, unlabored, Respiratory ca1 pattern is regular, symmetrical, ca1 12:49 12:48 General: Appears in no apparent distress. comfortable, Behavior is ca1 ca1 16:07 11:10 BP 137 / 59; Pulse 86bpm; Resp 42bpm; Pulse Ox 87% RA; 105.23 kg; Height 5 ft. 9 ca1 in.; BMI: 34.2; Pain 8/10; Pt placed on O2 per NC.; sv 16:56 16:48 Admitted to Tele accompanied by tech, via wheelchair, room 403, with oxygen, with ca1 chart, Report called to Laury RN ca1
--- NOTE | 2021-01-19 12:54 | RAD REPORT ---
EXAM DESCRIPTION: CT - Chest For Pe Angio - 01/19/2021 12:44 pm CLINICAL HISTORY: Chest pain. DYSPNEA COMPARISON: Chest For Pe Angio dated 03/23/2017; Chest Single View dated 01/19/2021; Chest Single View d ated 04/28/2019 TECHNIQUE: CT angiogram of the pulmonary arteries was performed with MIP. All CT scans are performed using dose optimization technique as appropriate and may include automated exposure control or mA/KV adjustment according to patient size. FINDINGS: No evidence of pulmonary thromboembolism. No acute aortic finding demonstrated. Extensive ground-glass lung opacities are present with atelectasis in both lung bases. Small bilateral pleural effusions. No concerning bony finding. IMPRESSION: No evidence of pulmonary thromboembolism. Small bilateral pleural effusions with extensive bilateral ground-glass lung opacities. CHF is a poss ibility, as is underlying COVID-19 infection.
[2021-01-19] MEDS ORDERED: ENOXAPARIN 100 MG/ML SYR SQ ONE (13:12)
[2021-01-19] MEDS ORDERED: METHYLPREDNISOLONE 125 MG INJ ONE (13:12)
[2021-01-19 13:22] LABS: Blood Morphology Comment NOT SEEN (NOT SEEN); Platelet Estimate DECR
[2021-01-19] MEDS ORDERED: FUROSEMIDE 40 MG/4 ML VIAL ONE (13:49)
[2021-01-19 14:09] LABS: Urine Blood 2+ (Negative); Urine Glucose Negative (Negative); Urine Protein Negative (Negative); Urine pH 5.5 (5.0-7.0)
--- NOTE | 2021-01-19 14:22 | P.HP ---
Certification for Inpatient Patient admitted to: Inpatient With expected LOS: >2 Midnights Practitioner: I am a practitioner with admitting privileges, knowledge of patient current condition, hospital course, and medical plan of care. Services: Services provided to patient in accordance with Admission requirements found in Title 42 Section 412.3 of the Code of Federal Regulations Patient History Date of Service: 01/19/21 Reason for admission: hypoxia, COVID-19 History of Present Illness: 60yoF, PMH: HTN, HLD, DM2 (diet controlled), TIA, asthma Presents to ED due to 1-2 weeks of progressively worsening shortness of breath, intermittent chest pain. Over last few days, symptoms have gotten significantly worse. Dyspnea with minimal exertion. Found to be hypoxic 80% on RA, COVID-19+, flu b+, CT chest negative for PE, + small b/l pleural effusions, pancytopenia. Pt reports feeling slightly better with O2. Otherwise, denies fever/chills, no new abdominal pain, no change in bowel/urine habits. Reports daughter and her family have been COVID+ recently / symptomatic. Not vaccinated. Reports chronic b/l neuropathy hands/legs, chronic diarrhea with intermittent rectal bleed. Chest pain in substernal, worsening over last few days, with exertion. Reports rectal bleed has been going on for years, intermittently, told by her physician ok as long as bright red blood and not old blood, unsure if she has h/o hemorrhoids. Allergies codeine Adverse Reaction (Verified 03/23/17 17:51) Itching Home Medications: Amphet Asp/Amphet/D-Amphet [Adderall 30 mg Tablet] 10 mg PO BID 03/23/17 Atorvastatin Calcium 40 mg pe PO DAILY 03/23/17 Clopidogrel Bisulfate [Plavix*] 75 mg PO DAILY 03/23/17 Gabapentin [Neurontin*] 300 mg PO TID 03/23/17 Levothyroxine [Synthroid*] 0.125 mg PO DAILY 03/23/17 Sertraline HCl 50 mg PO DAILY 03/23/17 Insulin Detemir [Levemir Flextouch] 10 unit SQ BEDTIME #1 ml 03/24/17 lisinopriL [Lisinopril] 5 mg PO DAILY #30 tablet 03/24/17 Insulin Detemir [Levemir] 26 units SQ DAILY 03/25/17 Pantoprazole [Protonix Tab] 40 mg PO DAILY #30 tab 03/25/17 - Past Medical/Surgical History -: Hypertension -: Hyperlipidemia -: Diabetes -: TIA -: Hypothyroidism -: Depression -: Neuropathy -: Osteoarthritis -: Cholecystectomy -: Knee surgery - Family History Father -: Heart disease Mother -: Heart disease ( age 52 from [place]) Brother -: Heart disease Sister -: Heart disease - Social History Smoking Status: Never smoker Alcohol use: No CD- Drugs: No Place of Residence: Home Review of Systems 10-point ROS is otherwise unremarkable Physical Examination - Physical Exam General: Alert, Moderate distress HEENT: Sclerae nonicteric Respiratory: Diminished, Crackles/rales (bilaterally) Cardiovascular: Regular rate/rhythm, Normal S1 S2, Edema (trace bilateral lower extremities), Systolic murmur Capillary refill: <2 Seconds Gastrointestinal: Soft and benign, Non-distended, Tenderness (mild RLQ) Integumentary: No rashes, No significant lesion Neurological: Normal speech, Normal strength at 5/5 x4 extr, Normal affect - Studies Laboratory Data (last 24 hrs) 01/19/21 11:30: PT 17.2 H, INR 1.49, APTT 36.1 01/19/21 11:30: WBC 1.60 L*, Hgb 9.5 L, Hct 29.2 L, Plt Count 54 L 01/19/21 11:30: Sodium 140, Potassium 3.5, BUN 13, Creatinine 0.72, Glucose 92, Total Bilirubin 2.6 H, AST 117 H, ALT 50, Alkaline Phosphatase 117 Microbiology Data (last 24 hrs): 01/19/21 11:35 Nasopharnyx Influenza Type A Antigen Screen - Final 01/19/21 11:35 Nasopharnyx Influenza Type B Antigen Screen - Final Assessment and Plan - Advance Directives Does patient have a Living Will: No Does patient have a Durable POA for Healthcare: No Physician Review Additional Text: Problem List Chest Pain, elevated troponin COVID-19 Influenza B + acute hypoxemic respiratory failure secondary to COVID-19 infection possible acute / new-onset CHF Exacerbation Hypothyroidism DM2, non-insulin dependent h/o TIA Pancytopenia Anemia, chronic steroids, vitamin supplementation, O2 as needed Tamiflu ordered does not appear to have sepsis/severe sepsis, elevated lactate likely from significant hypoxia from COVID-[address] negative for PE, +pleural effusions s/p IV 40mg lasix in ED, continue with 20 mg IV lasix echo ordered - eval function, murmur cardiology consulted, ACS rule out, trend trop h/o GI bleed - reports intermittent bright red blood per rectum for 3-4 years, told ok as long as bright red blood per her doctor, last bled ~3 months ago with thrombocytopenia - avoid anticoagulation, SCDs ordered obtain/confirm home medications accucheks, SSI, lantus as needed; expect steroid induced hyperglycemia low suspicion for bacterial superinfection, no antibiotics at this time VTE: SCDs Code: full Dispo: anticipate hospitalization >2 days Time Spent Managing Pts Care (In Minutes): 70
[2021-01-19] MEDS ORDERED: PNEUMOCOCCAL VACCINE 0.5 ML IMVAC ONE (17:00)
[2021-01-19] MEDS ORDERED: ONDANSETRON 4 MG/2 ML VIAL IV PRN (17:50)
[2021-01-19] MEDS: INSULIN -REGULAR HUMAN 50 UNIT/0.5 ML ML SQ SCH ×2 (17:50→21:00)
[2021-01-19] MEDS: ASCORBIC ACID 500 MG TABLET PO SCH ×2 (19:51→21:00)
[2021-01-19] MEDS: OSELTAMIVIR 75 MG CAP PO SCH (19:51)
[2021-01-19] MEDS: FAMOTIDINE 20 MG TAB PO SCH (19:51)
[2021-01-19] MEDS: FUROSEMIDE 20 MG/ 2ML VIAL IV SCH (19:52)
[2021-01-19] MEDS: METHYLPREDNISOLONE 125 MG INJ IV SCH (19:52)
[2021-01-19] MEDS: THIAMINE 200 MG/2 ML INJ IVP SCH (19:53)
[2021-01-20] MEDS: METHYLPREDNISOLONE 125 MG INJ IV SCH ×3 (00:24→17:14)
[2021-01-20] MEDS: ACETAMINOPHEN 500 MG TAB PO PRN (02:51)
[2021-01-20 03:39] LABS: Absolute Lymphocytes (CBC) 0.2 K/uL (0.7-4.9); Basophils % 0.2 % (0-1.3); Hematocrit 24.7 % (36.0-45.0); Lymphocytes % 17.6 % (15.3-44.8); MPV 9.7 fL (7.6-11.3); RBC Red Blood Cell Count 2.77 M/uL (3.86-4.86)
[2021-01-20 04:20] LABS: Albumin 1.8 g/dL (3.4-5.0); Bilirubin Total 2.1 mg/dL (0.2-1.0); Magnesium 1.5 mg/dL (1.8-2.4); Phosphorus 3.2 mg/dL (2.5-4.9); Potassium 3.5 mmol/L (3.5-5.1); Protein, Total 5.8 g/dL (6.4-8.2)
[2021-01-20 04:21] LABS: C-Reactive Protein 30.6 mg/L (<3.00)
[2021-01-20 04:36] LABS: Ferritin 110.1 ng/mL (8-388)
[2021-01-20] MEDS: INSULIN -REGULAR HUMAN 50 UNIT/0.5 ML ML SQ SCH ×4 (07:30→21:00)
--- NOTE | 2021-01-20 07:31 | RAD REPORT ---
EXAM DESCRIPTION: RAD - Chest Single View - 01/20/2021 6:45 am CLINICAL HISTORY: hypoxia, Covid, chf COMPARISON: Chest Single View dated 01/19/2021; Chest Single View dated 04/28/2019; Chest Single View dated 03/23/2017; CHEST SINGLE VIEW dated 03/29/2010 FINDINGS: Similar cardiomegaly. Diffuse prominence of the pulmonary interstitium with areas of more patchy nodularity No acute osseous abnormality. Suspect left pleural effusion overall, findings are m inimally improved compared with 01/19/2021. IMPRESSION: Mild improved aeration compared with 01/19/2021 with edema and/or multifocal pneumonia.
--- NOTE | 2021-01-20 07:40 | P.PN ---
Subjective Date of Service: 01/20/21 Chief Complaint: hypoxia, COVID-19 Subjective: Improving (Feeling better, slight improvement and breathing. Still very dyspneic. requiring O2 supplementation. denies bleeding) Review of Systems 10-point ROS is otherwise unremarkable Physical Examination - Vital Signs Temperature: 97.3 F Blood Pressure: 108/56 Pulse: 67 Respirations: 20 Pulse Ox (%): 93 - Studies Laboratory Data (last 24 hrs) 01/19/21 11:30: PT 17.2 H, INR 1.49, APTT 36.1 01/19/21 11:30: WBC 1.60 L*, Hgb 9.5 L, Hct 29.2 L, Plt Count 54 L 01/19/21 11:30: Sodium 140, Potassium 3.5, BUN 13, Creatinine 0.72, Glucose 92, Total Bilirubin 2.6 H, AST 117 H, ALT 50, Alkaline Phosphatase 117 Microbiology Data (last 24 hrs): 01/19/21 11:35 Nasopharnyx Influenza Type A Antigen Screen - Final 01/19/21 11:35 Nasopharnyx Influenza Type B Antigen Screen - Final Assessment & Plan Physician Review Additional Text: Physical Exam Gen: mild distress HEENT: Normal conjunctiva, sclerae anicteric Pulm: Bilateral crackles at bases, mildly labored respirations CV: Regular rate and rhythm, no edema Abd: soft, NTND integumentary: no rash Neuro: moves all extremities, normal speech, normal affect Problem List Chest Pain, elevated troponin COVID-19 Influenza B + acute hypoxemic respiratory failure secondary to COVID-19 infection possible acute / new-onset CHF Exacerbation Hypothyroidism DM2, non-insulin dependent h/o TIA Pancytopenia Anemia, chronic steroids, vitamin supplementation, O2 as needed Tamiflu ordered does not appear to have sepsis/severe sepsis, elevated lactate likely from significant hypoxia from COVID-[address] concern [address]F exacerb[address] CT negative for PE, +pleural effusions s/p IV 40mg lasix in ED, continue with 20 mg IV lasix echo ordered - eval function, murmur cardiology consulted, ACS rule out, trend trop h/o GI bleed - reports intermittent bright red blood per rectum for 3-4 years, told ok as long as bright red blood per her doctor, last bled ~3 months ago no bleed since admission with thrombocytopenia - avoid anticoagulation, SCDs ordered obtain/confirm home medications accucheks, SSI, lantus as needed; expect steroid induced hyperglycemia low suspicion for bacterial superinfection, no antibiotics at this time heme/onc consulted for input on pancytopenia, likely due to infection VTE: SCDs Code: full Dispo: anticipate hospitalization >2 days Time Spent Managing Pts Care (In Minutes): 35
--- NOTE | 2021-01-20 07:45 | EKG ---
Test Date: 2021-01-19 Test Time: 11:33:18 Research Physiologist: RATNA MEASUREMENT RESULTS: Intervals: Rate: 79 TN: 126 QRSD: 98 QT: 424 QTc: 486 [place]: P: 26 TN: 126 QRS: -46 T: 87 INTERPRETIVE STATEMENTS: Normal sinus rhythm Left anterior fascicular block Nonspecific ST and T wave abnormality Abnormal ECG Compared to ECG 04/28/2019 09:26:17 ST (T wave) deviation now present Left ventricular hypertrophy no longer present Electronically Signed On 01-20-21 07:42:49 CDT by Michael Alex
--- NOTE | 2021-01-20 07:51 | ECHO ---
HEIGHT: 5 ft 9 in WEIGHT: 231 lb 0 oz DATE OF STUDY: 01/19/[address]: Richard Lopez 2-DIMENSIONAL: YES M.MODE: YES DOPPLER: YES COLOR FLOW: YES TDS: YES PORTABLE: YES DEFINITY: NO BUBBLE STUDY: NO DIAGNOSIS: SHORTNESS OF BREATH, NEW MURMUR, ELEVATED TROPONIN CARDIAC HISTORY: CATHERIZATION: NO SURGERY: NO PROSTHETIC VALVE: NO PACEMAKER: NO MEASUREMENTS (cm) DIASTOLIC (NORMALS) SYSTOLIC (NORMALS) IVSd 1.0 (0.6-1.2) LA Diam 2.5 (1.9-4.0) LVEF 59% LVIDd 4.8 (3.5-5.7) LVIDs 3.3 (2.0-3.5) %FS 31% LVPWd 1.1 (0.6-1.2) Ao Diam 2.7 (2.0-3.7) 2 DIMENSIONAL ASSESSMENT: RIGHT ATRIUM: NORMAL LEFT ATRIUM: NORMAL RIGHT VENTRICLE: NORMAL LEFT VENTRICLE: NORMAL TRICUSPID VALVE: NORMAL MITRAL VALVE: NORMAL PULMONIC VALVE: NORMAL AORTIC VALVE: NORMAL PERICARDIAL EFFUSION: NONE AORTIC ROOT: NORMAL LEFT VENTRICULAR WALL MOTION: NORMAL. DOPPLER/COLOR FLOW: NORMAL. COMMENTS: NORMAL 2D ECHO WITH DOPPLER. NO WALL MOTION ABNORMALITY. NO EFFUSION. TECHNOLOGIST: LARRY AKHTAR
[2021-01-20] MEDS: VITAMIN D 1000 UNIT TAB PO SCH (08:08)
[2021-01-20] MEDS: ASCORBIC ACID 500 MG TABLET PO SCH ×4 (08:09→21:14)
[2021-01-20] MEDS: FAMOTIDINE 20 MG TAB PO SCH ×2 (08:09→21:14)
[2021-01-20] MEDS: OSELTAMIVIR 75 MG CAP PO SCH ×2 (08:09→21:14)
[2021-01-20] MEDS: FUROSEMIDE 20 MG/ 2ML VIAL IV SCH ×2 (08:09→17:14)
[2021-01-20] MEDS: THIAMINE 200 MG/2 ML INJ IVP SCH ×2 (08:15→21:16)
[2021-01-20] MEDS ORDERED: POTASSIUM CL SA 10 MEQ TAB PO ONE (09:00)
[2021-01-20] MEDS ORDERED: Magnesium Sulfate 2gm IVPB 2 G/50 ML BAG IV ONE (09:00)
--- NOTE | 2021-01-20 09:42 | RAD REPORT ---
EXAM DESCRIPTION: US - Liver Only - 01/20/2021 9:00 am CLINICAL HISTORY: elevated bili, eval liver/GB COMPARISON: Chest For Pe Angio dated 01/19/2021 FINDINGS: Coarsened echotexture of the liver with nodular contour. No focal liver lesion or intrahep atic biliary dilatation.No evidence of portal vein thrombosis. The spleen is normal in size. Trace as cites. Right-sided pleural effusion. Cholecystectomy. IMPRESSION: Mildly cirrhotic liver morphology. Trace perihepatic fluid. Cholecystectomy.
[2021-01-20 12:09] LABS: Potassium 3.5 mmol/L (3.5-5.1)
[2021-01-20 18:25] LABS: Absolute Lymphocytes (CBC) 0.3 K/uL (0.7-4.9); Basophils % 0.1 % (0-1.3); Hematocrit 25.1 % (36.0-45.0); Lymphocytes % 6.4 % (15.3-44.8); MPV 10.2 fL (7.6-11.3); RBC Red Blood Cell Count 2.82 M/uL (3.86-4.86)
[2021-01-21] MEDS: METHYLPREDNISOLONE 125 MG INJ IV SCH ×3 (00:08→16:36)
[2021-01-21] MEDS: ACETAMINOPHEN 500 MG TAB PO PRN (00:25)
[2021-01-21 04:24] LABS: Absolute Lymphocytes (CBC) 0.4 K/uL (0.7-4.9); Basophils % 0.3 % (0-1.3); Hematocrit 27.9 % (36.0-45.0); MPV 10.3 fL (7.6-11.3); RBC Red Blood Cell Count 3.15 M/uL (3.86-4.86)
[2021-01-21 05:00] LABS: Albumin 2.1 g/dL (3.4-5.0); Bilirubin Total 2.2 mg/dL (0.2-1.0); C-Reactive Protein 28.6 mg/L (<3.00); Magnesium 1.9 mg/dL (1.8-2.4); Potassium 3.8 mmol/L (3.5-5.1); Protein, Total 6.5 g/dL (6.4-8.2)
[2021-01-21] MEDS: INSULIN -REGULAR HUMAN 50 UNIT/0.5 ML ML SQ SCH ×4 (07:30→20:34)
[2021-01-21] MEDS: OSELTAMIVIR 75 MG CAP PO SCH ×2 (08:18→20:34)
[2021-01-21] MEDS: VITAMIN D 1000 UNIT TAB PO SCH (08:18)
[2021-01-21] MEDS: ASCORBIC ACID 500 MG TABLET PO SCH ×4 (08:18→20:34)
[2021-01-21] MEDS: FUROSEMIDE 20 MG/ 2ML VIAL IV SCH (08:18)
[2021-01-21] MEDS: FAMOTIDINE 20 MG TAB PO SCH ×2 (08:18→20:33)
[2021-01-21] MEDS: THIAMINE 200 MG/2 ML INJ IVP SCH ×2 (08:19→20:34)
--- NOTE | 2021-01-21 08:46 | RAD REPORT ---
EXAM DESCRIPTION: RAD - Chest Single View - 01/21/2021 7:48 am CLINICAL HISTORY: covid, ?CHF COMPARISON: January 20January 19 TECHNIQUE: AP portable chest image was obtained 01/21/2021 7:48 am . FINDINGS: Bilateral airspace opacification is present most pronounced in the lower lung self. Dora vivian is accentuated on today's study due to a more shallow inspiratory effort. True progression or imp rovement is not suspected. Cardiac silhouette is enlarged. Vasculature is prominent. No measurable pl eural effusion and no pneumothorax. No acute bony abnormality seen. No acute aortic findings suspecte d. IMPRESSION: Bilateral airspace opacification consistent with moderate severity bilateral COVID-19 pn eumonia. Findings are not substantially different when adjusting for the more shallow inspiration on today's s tudy. Concurrent failure or volume overload cannot be excluded.
[2021-01-21] MEDS: levoFLOXacin 500 MG TAB PO SCH (12:19)
--- NOTE | 2021-01-21 15:10 | P.PN ---
Subjective Date of Service: 01/21/21 Chief Complaint: hypoxia, COVID-19 Subjective: Improving (on 4L NC, feels mild improvement. +cough, generalized weakness. no bleeding) Review of Systems 10-point ROS is otherwise unremarkable Physical Examination - Vital Signs Temperature: 96.8 F Blood Pressure: 119/57 Pulse: 78 Respirations: 20 Pulse Ox (%): 92 - Studies Microbiology Data (last 24 hrs): 01/19/21 11:30 Blood - Blood Blood Culture Gram Stain - Final Assessment & Plan Physician Review Additional Text: Physical Exam Gen: mild distress, AAOx3 HEENT: Normal conjunctiva, sclerae anicteric Pulm: Bilateral crackles at bases, mildly labored respirations on 4LNC CV: Regular rate and rhythm, no edema Abd: soft, NTND integumentary: no rash Neuro: moves all extremities, normal speech Problem List Chest Pain, elevated troponin COVID-19 pneumonia Influenza B + acute hypoxemic respiratory failure secondary to COVID-19 infection possible acute / new-onset CHF Exacerbation Hypothyroidism DM2, non-insulin dependent h/o TIA Pancytopenia Anemia, chronic steroids, vitamin supplementation, O2 as needed Tamiflu ordered does not appear to have sepsis/severe sepsis, elevated lactate likely from significant hypoxia from COVID-[address]F [address] CT negative for PE, +pleural effusions s/p IV 40mg lasix in ED, received IV Lasix 20mg BID, will dc and evaluate tomorrow echo ordered - normal EF cardiology consulted - no further eval at this time, likely demand ischemia in setting of hypoxia / COVid pneumonia discussed with pulm - start levaquin h/o GI bleed - reports intermittent bright red blood per rectum for 3-4 years, told ok as long as bright red blood per her doctor, last bled ~3 months ago no bleed since admission with thrombocytopenia - avoid anticoagulation, SCDs ordered accucheks, SSI, lantus as needed; expect steroid induced hyperglycemia heme/onc consulted for input on pancytopenia, likely due to infection VTE: SCDs Code: full Dispo: anticipate hospitalization >2 days Time Spent Managing Pts Care (In Minutes): 35
[2021-01-21] MEDS ORDERED: BARICITINIB 2 MG TABLET PO SCH (15:30)
[2021-01-21] MEDS ORDERED: REMDESIVIR (EUA) 200 MG in NA CHLORIDE 0.9% 250 ML IV ONE (16:00)
[2021-01-22] MEDS: METHYLPREDNISOLONE 125 MG INJ IV SCH ×3 (00:18→16:15)
[2021-01-22 03:48] LABS: Absolute Lymphocytes (CBC) 0.2 K/uL (0.7-4.9); Hematocrit 25.8 % (36.0-45.0); Lymphocytes % 4.1 % (15.3-44.8); MPV 10.5 fL (7.6-11.3); RBC Red Blood Cell Count 2.93 M/uL (3.86-4.86)
[2021-01-22 04:20] LABS: ALT/SGPT 52 U/L (12-78); AST/SGOT 109 U/L (15-37); Albumin 1.9 g/dL (3.4-5.0); Alkaline Phosphatase 118 U/L (45-117); BUN Blood Urea Nitrogen 15 mg/dL (7-18); Bicarbonate 30 mmol/L (21-32); Bilirubin Direct 1.1 mg/dL (0-0.2); Bilirubin Total 2.4 mg/dL (0.2-1.0); Glucose Level 169 mg/dL (74-106); Magnesium 1.9 mg/dL (1.8-2.4); Potassium 3.3 mmol/L (3.5-5.1); Protein, Total 5.8 g/dL (6.4-8.2); Sodium Level 146 mmol/L (136-145)
[2021-01-22 04:36] LABS: Ferritin 406.4 ng/mL (8-388)
--- NOTE | 2021-01-22 06:45 | P.PN ---
Subjective Date of Service: 01/22/21 Chief Complaint: hypoxia, COVID-19 Subjective: Worsening (desaturating more with ambulation, placed on bipap overnight.) Review of Systems 10-point ROS is otherwise unremarkable Physical Examination - Vital Signs Temperature: 96.8 F Blood Pressure: 138/67 Pulse: 84 Respirations: 22 Pulse Ox (%): 91 - Studies Microbiology Data (last 24 hrs): 01/19/21 11:30 Blood - Blood Blood Culture Gram Stain - Final Assessment & Plan Physician Review Additional Text: Physical Exam Gen: more fatigued, on BIPAP HEENT: Normal conjunctiva, sclerae anicteric Pulm: Bilateral crackles at bases, mild labored respirations on BIPAP CV: Regular rate and rhythm, no edema Abd: soft, NTND integumentary: no rash Neuro: moves all extremities, normal speech Problem List acute hypoxemic respiratory failure secondary to COVID-19 infection NSTEMi secondary to demand ischemia / COVID-19 pneumonia COVID-19 pneumonia Influenza B + possible acute / new-onset CHF Exacerbation Hypothyroidism DM2, non-insulin dependent h/o TIA Pancytopenia Anemia, chronic steroids, vitamin supplementation, O2 as needed. requiring BIPAP/HFNC not canddiate for baracitinib, remdesevir started 01/21, continue tamiflu concern for CHF exacerbation with pleural effusions, trace edema on admission receiving IV lasix, continue, will give albumin before next dose CT negative for PE, +pleural effusions s/p IV 40mg lasix in ED, received IV Lasix 20mg BID echo ordered - normal EF cardiology consulted - no further eval at this time, likely demand ischemia in setting of hypoxia / COVid pneumonia discussed with pulm - started levaquin on 01/21 Blood cultures: 07/18 bottles with [facility] in clusters, likely contaminant, but vanc ordered 01/22 until cultures finalized h/o GI bleed - reports intermittent bright red blood per rectum for 3-4 years, told ok as long as bright red blood per her doctor, last bled ~3 months ago no bleed since admission with thrombocytopenia - avoid anticoagulation, SCDs ordered accucheks, SSI, lantus as needed; expect steroid induced hyperglycemia heme/onc consulted for input on pancytopenia, likely due to infection VTE: SCDs Code: full Dispo: anticipate hospitalization >2 days Time Spent Managing Pts Care (In Minutes): 45
[2021-01-22] MEDS: INSULIN -REGULAR HUMAN 50 UNIT/0.5 ML ML SQ SCH ×4 (07:30→19:48)
[2021-01-22] MEDS: levoFLOXacin 500 MG TAB PO SCH (08:18)
[2021-01-22] MEDS: OSELTAMIVIR 75 MG CAP PO SCH ×2 (08:18→20:14)
[2021-01-22] MEDS: VITAMIN D 1000 UNIT TAB PO SCH (08:18)
[2021-01-22] MEDS: FAMOTIDINE 20 MG TAB PO SCH ×2 (08:18→20:14)
[2021-01-22] MEDS: SERTRALINE HCL 50 MG TAB PO SCH (08:19)
[2021-01-22] MEDS: THIAMINE 200 MG/2 ML INJ IVP SCH ×2 (08:19→20:14)
[2021-01-22] MEDS: ASCORBIC ACID 500 MG TABLET PO SCH ×4 (08:19→20:14)
[2021-01-22] MEDS ORDERED: FUROSEMIDE 20 MG/ 2ML VIAL IV SCH (09:00)
[2021-01-22] MEDS ORDERED: POTASSIUM CL SA 10 MEQ TAB PO ONE ×2 (09:00→21:00)
[2021-01-22] MEDS ORDERED: LEVOTHYROXINE SOD 0.125 MG TAB PO SCH (09:00)
[2021-01-22] MEDS: REMDESIVIR (EUA) 100 MG in NA CHLORIDE 0.9% 250 ML IV SCH (09:21)
[2021-01-22 09:59] LABS: Arterial Blood Carboxyhemoglob 1.5 % (0-1.5); Blood O2 Saturation 91.4 % (92-98.5)
--- NOTE | 2021-01-22 10:05 | RAD REPORT ---
EXAM DESCRIPTION: [facility] Single View01/22/2021 8:04 am CLINICAL HISTORY: Shortness of breath COMPARISON: January 21, 2021 FINDINGS: Worsening extensive bilateral pulmonary opacities. Heart is mildly enlarged. Small to moderate bilateral pleural effusions IMPRESSION: Worsening in extensive bilateral pulmonary opacities
--- NOTE | 2021-01-22 12:17 | CON ---
I was asked by Dr. Holland to give my opinion regarding Mrs. Chanel's elevated troponin. The patient w as admitted on 01/19/2021. I reviewed the record on 01/20/2021. Mrs. Chanel is a 60-year-old woman, who has a history of TIA, dyslipidemia, hypertension, diabetes, obesity, came in with COVID, has colby vated troponin. No cardiac symptoms were reported. She was positive for flu B and COVID. She was b eing treated with Tylenol, vitamin C, vitamin D3, Pepcid, Lasix, insulin, levothyroxine, steroids, os eltamivir, potassium, remdesivir, sertraline, thiamine, and Levaquin. She had normal vital signs. S he was afebrile and she was in a sinus rhythm. Her O2 saturation was 92% on nasal cannula. I did no t feel like her symptoms were cardiac in nature. I did order a 2D echocardiogram on her, which was p erfectly normal without any evidence of wall motion abnormalities. I feel like Mrs. Chanel's elevate d troponin is secondary to her COVID pneumonia. I do not recommend any further cardiac workup at thi s point. I will be happy to see her in the office as an outpatient. BABAK/SUKHJINDER Voice ID: [id number] Report ID: [id number]
[2021-01-22] MEDS: VANCOMYCIN 1.75 GM in NA CHLORIDE 0.9% 500 ML IVPB SCH (15:18)
[2021-01-22 16:55] LABS: Urine Appearance CLEAR (Clear); Urine Bilirubin NEGATIVE (Negative); Urine Blood 1+ (Negative); Urine Color DK YELLOW (Yellow); Urine Glucose NEGATIVE (Negative); Urine Protein TRACE (Negative)
[2021-01-22 17:34] LABS: Urine Bacteria <20 /HPF (<20)
[2021-01-22] MEDS ORDERED: ALBUMIN HUMAN 25% 100 ML IV ONE (17:58)
[2021-01-22] MEDS ORDERED: FUROSEMIDE 20 MG/ 2ML VIAL IV ONE (18:57)
[2021-01-23] MEDS: METHYLPREDNISOLONE 125 MG INJ IV SCH ×3 (00:21→16:49)
[2021-01-23] MEDS: VANCOMYCIN 1.75 GM in NA CHLORIDE 0.9% 500 ML IVPB SCH ×2 (02:03→15:00)
[2021-01-23 05:15] LABS: Absolute Lymphocytes (CBC) 0.2 K/uL (0.7-4.9); Basophils % 0.1 % (0-1.3); Hematocrit 24.7 % (36.0-45.0); Lymphocytes % 4.8 % (15.3-44.8); MPV 10.5 fL (7.6-11.3); RBC Red Blood Cell Count 2.82 M/uL (3.86-4.86)
[2021-01-23 05:35] LABS: ALT/SGPT 52 U/L (12-78); AST/SGOT 107 U/L (15-37); Alkaline Phosphatase 136 U/L (45-117); BUN Blood Urea Nitrogen 18 mg/dL (7-18); Bicarbonate 31 mmol/L (21-32); Bilirubin Direct 1.4 mg/dL (0-0.2); Bilirubin Total 3.3 mg/dL (0.2-1.0); Ferritin 471.3 ng/mL (8-388); Glucose Level 174 mg/dL (74-106); Magnesium 1.9 mg/dL (1.8-2.4); Potassium 3.5 mmol/L (3.5-5.1); Protein, Total 5.6 g/dL (6.4-8.2); Sodium Level 146 mmol/L (136-145)
[2021-01-23] MEDS ORDERED: POTASSIUM CL SA 10 MEQ TAB PO ONE (05:39)
[2021-01-23] MEDS: LEVOTHYROXINE SOD 0.125 MG TAB PO SCH (06:02)
--- NOTE | 2021-01-23 06:58 | P.PN ---
Subjective Date of Service: 01/23/21 Chief Complaint: hypoxia, COVID-19 Subjective: No new changes (confused yesteday/overnight. off/on bipap/hfnc. transferred to ICU yesterday for closer monitoring. callahan placed, pt very dyspenic, desaturates quicker with ambulation, generalized weakness) Review of Systems 10-point ROS is otherwise unremarkable Physical Examination - Vital Signs Temperature: 97.8 F Blood Pressure: 134/69 Pulse: 83 Respirations: 27 Pulse Ox (%): 93 Assessment & Plan Physician Review Additional Text: Physical Exam Gen: fatigued, confused, AAOx2 HEENT: Normal conjunctiva, sclerae anicteric Pulm: Bilateral crackles at bases, tachypneic, on HFNC CV: Regular rate and rhythm, trace b/l pedal edema Abd: soft, NTND integumentary: no rash Neuro: moves all extremities Problem List acute hypoxemic respiratory failure secondary to COVID-19 infection NSTEMi secondary to demand ischemia / COVID-19 pneumonia COVID-19 pneumonia Influenza B + acute/new onset HFpEF - likely secondary to pneumonia Hypothyroidism DM2, non-insulin dependent h/o TIA Pancytopenia Anemia, chronic Cirrhosis Dementia, likely vascular acute delirium, secondary to infection and h/o dementia steroids, vitamin supplementation, O2 as needed. requiring BIPAP/HFNC. not canddiate for baracitinib, remdesevir started 01/21, continue tamiflu concern for CHF exacerbation with pleural effusions, trace edema on admission CT negative for PE, +pleural effusions s/p IV 40mg lasix in ED, titrating IV lasix down albumin + lasix given on 01/22. echo ordered - normal EF cardiology consulted - no further eval at this time, likely demand ischemia in setting of hypoxia / COVid pneumonia discussed with pulm - started levaquin on 01/21 Blood cultures: 07/18 bottles with [facility] in clusters, dc vanc, result CONS - likely contaminant, no skin lesions h/o GI bleed - reports intermittent bright red blood per rectum for 3-4 years, told ok as long as bright red blood per her doctor, last bled ~3 months ago no bleed since admission thrombocytopenia as well - avoid anticoagulation, SCDs ordered accucheks, SSI, lantus as needed; expect steroid induced hyperglycemia heme/onc consulted for input on pancytopenia, agree that likely due to infection, h/o pancytopenia and cirrhosis VTE: SCDs Code: full Dispo: anticipate hospitalization >2 days transferred to ICU on 01/22 for closer monitoring, increased o2 need updated daughter and , full code states patient is an anxious person, and does have h/o forgetting things occasionally, confusion with removing nasal cannula/masks on prior admission for pneumonia Time Spent Managing Pts Care (In Minutes): 45
[2021-01-23] MEDS: INSULIN -REGULAR HUMAN 50 UNIT/0.5 ML ML SQ SCH ×4 (07:30→20:38)
[2021-01-23 07:49] LABS: Anisocytosis 1+; Blood Morphology Comment NOTED (NOT SEEN); Platelet Estimate DECR; Target Cells 1+
[2021-01-23 07:50] LABS: Burr Cells 2+
[2021-01-23] MEDS: levoFLOXacin 500 MG TAB PO SCH (08:23)
[2021-01-23] MEDS: FAMOTIDINE 20 MG TAB PO SCH ×2 (08:23→20:40)
[2021-01-23] MEDS: OSELTAMIVIR 75 MG CAP PO SCH ×2 (08:24→20:39)
[2021-01-23] MEDS: ASCORBIC ACID 500 MG TABLET PO SCH ×4 (08:24→20:40)
[2021-01-23] MEDS: VITAMIN D 1000 UNIT TAB PO SCH (08:25)
[2021-01-23] MEDS: REMDESIVIR (EUA) 100 MG in NA CHLORIDE 0.9% 250 ML IV SCH (08:26)
[2021-01-23] MEDS: THIAMINE 200 MG/2 ML INJ IVP SCH ×2 (08:26→20:39)
[2021-01-23] MEDS: SERTRALINE HCL 50 MG TAB PO SCH (08:30)
--- NOTE | 2021-01-23 09:25 | RAD REPORT ---
EXAM DESCRIPTION: RAD - Chest Single View - 01/23/2021 6:22 am CLINICAL HISTORY: f/u edema/effusion, COVID Chest pain. COMPARISON: Chest Single View dated 01/22/2021; Chest Single View dated 01/21/2021; Chest Single View dated 01/20/2021; Chest Single View dated 01/19/2021 FINDINGS: Portable technique limits examination quality. The lungs are underinflated with extensive bilateral pulmonary opacity noted, grossly unchanged. The heart is normal in size. No displaced fractures. IMPRESSION: Underinflated lungs without significant change in lung aeration suspected.
[2021-01-23] MEDS ORDERED: FENTANYL CITR 100 MCG/2 ML ONE (10:18)
[2021-01-23] MEDS: FENTANYL CITR 100 MCG/2 ML IV PRN ×2 (10:20→19:14)
[2021-01-23] MEDS ORDERED: NA CHLORIDE 0.9% 150 ML IV ONE ×2 (12:59→14:00)
[2021-01-23] MEDS ORDERED: ALBUMIN HUMAN 25% 100 ML IV ONE (13:00)
[2021-01-23] MEDS ORDERED: NA CHLORIDE 0.9% 250 ML ONE (13:30)
[2021-01-23] MEDS ORDERED: ALBUMIN HUM 5% 250 ML IV ONE ×2 (13:31→15:00)
--- NOTE | 2021-01-23 16:04 | EKG ---
Test Date: 2021-01-23 Test Time: 12:42:44 Engineering Design Manager: MEASUREMENT RESULTS: Intervals: Rate: 131 VT: QRSD: 112 QT: 364 QTc: 537 [place]: P: VT: QRS: -61 T: 111 INTERPRETIVE STATEMENTS: Supraventricular tachycardia Left anterior fascicular block Cannot rule out Anterior infarct, age undetermined ST & T wave abnormality, consider lateral ischemia Abnormal ECG Compared to ECG 01/19/2021 11:33:18 Myocardial infarct finding now present Possible ischemia now present Sinus rhythm no longer present ST (T wave) deviation still present Electronically Signed On 01-23-21 16:03:29 CDT by Michael Alex
[2021-01-23] MEDS: ENOXAPARIN 30 MG/0.3 ML SQ SCH (20:37)
[2021-01-24] MEDS: METHYLPREDNISOLONE 125 MG INJ IV SCH ×3 (00:37→16:15)
[2021-01-24] MEDS: FENTANYL CITR 100 MCG/2 ML IV PRN ×2 (02:08→21:33)
[2021-01-24] MEDS: VANCOMYCIN 1.75 GM in NA CHLORIDE 0.9% 500 ML IVPB SCH ×2 (02:09→15:03)
[2021-01-24 04:45] LABS: Absolute Lymphocytes (CBC) 0.2 K/uL (0.7-4.9); Basophils % 0.3 % (0-1.3); Hematocrit 25.5 % (36.0-45.0); Lymphocytes % 2.1 % (15.3-44.8); MPV 9.5 fL (7.6-11.3); RBC Red Blood Cell Count 2.88 M/uL (3.86-4.86)
[2021-01-24 05:42] LABS: Protime INR 2.25
[2021-01-24] MEDS: LEVOTHYROXINE SOD 0.125 MG TAB PO SCH (05:44)
[2021-01-24 06:01] LABS: ALT/SGPT 55 U/L (12-78); AST/SGOT 104 U/L (15-37); Alkaline Phosphatase 168 U/L (45-117); BUN Blood Urea Nitrogen 23 mg/dL (7-18); Bicarbonate 30 mmol/L (21-32); Bilirubin Total 4.3 mg/dL (0.2-1.0); Ferritin 519.8 ng/mL (8-388); Glucose Level 203 mg/dL (74-106); Magnesium 1.9 mg/dL (1.8-2.4); Potassium 3.7 mmol/L (3.5-5.1); Protein, Total 5.4 g/dL (6.4-8.2); Sodium Level 148 mmol/L (136-145); Transferrin 153 mg/dL (200-360)
[2021-01-24] MEDS: INSULIN -REGULAR HUMAN 50 UNIT/0.5 ML ML SQ SCH ×4 (07:30→21:00)
[2021-01-24] MEDS: THIAMINE 200 MG/2 ML INJ IVP SCH ×2 (08:23→21:00)
[2021-01-24] MEDS: ENOXAPARIN 30 MG/0.3 ML SQ SCH (08:23)
[2021-01-24] MEDS: REMDESIVIR (EUA) 100 MG in NA CHLORIDE 0.9% 250 ML IV SCH (08:58)
[2021-01-24] MEDS: ASCORBIC ACID 500 MG TABLET PO SCH ×4 (09:00→21:00)
[2021-01-24] MEDS: FAMOTIDINE 20 MG TAB PO SCH ×2 (09:00→21:00)
[2021-01-24] MEDS: OSELTAMIVIR 75 MG CAP PO SCH ×2 (09:00→21:00)
[2021-01-24] MEDS: levoFLOXacin 500 MG TAB PO SCH (09:00)
[2021-01-24] MEDS: VITAMIN D 1000 UNIT TAB PO SCH (09:00)
[2021-01-24] MEDS: SERTRALINE HCL 50 MG TAB PO SCH (09:00)
--- NOTE | 2021-01-24 09:55 | P.PN ---
Date of Service: 01/23/21 (Hematology) Hematology consulted for pancytopenia. The patient was admitted on 01/19/2021. Mrs. Chanel is a 60-year-old woman, who has a history of TIA, dyslipidemia, hypertension, diabetes, obesity, came in with COVID, and was also positive for flu B. Currently in ICU for respiratory failure and requiring high oxygen support. Chart and labs reviewed for sequence of events. Pt noted to have chronic pancytopenia and also evidence of cirrhotic morphology in the liver. At this time I think, the pancytopenia has worsened from her baseline and likely due to acute stress from ongoing sepsis and COVID 19. Recommendations: 1. Thrombocytopenia: Plt at 32K. Smear evaluated shows no increased schistocytes. Coagulopathy likely from COVID 19 sequela, possible DIC. > transfuse single donot plt if plt count less than 15K or, if bleeding when plt < 50K. 2. Elevated D dimers and PT, low fibrinogen: Possible COVID 19 coagulopathy, DIC. Cirrhosis also presents with low fibrinogen and elevated PT. > Due to risk of coagulopathy causing microthrombi, recommend prophylactic anticogulation with Heparin or lovenox for now if no contraindications with bleeding AND plt > 20K. > Transfuse FFP if bleeding > Transfuse Cryoprecipitate if bleeding from any site or oozing from any IV line sites etc if fibrinogen less than 150. 3. Anemia: Drop in Hb during this acute setting. Adequate iron and % sats. Ferritin could be elevated as an acute phase reactant. Inadequate retic response. Will need a complete anemia work up once she recuperates from the acute illness. Transfuse PRBC if Hb < 8gm. 4. Leucopenia: Improved now and normalized now. Will monitor.
[2021-01-24 15:42] LABS: Arterial Blood Carboxyhemoglob 1.5 % (0-1.5); Blood Gas Oxyhemoglobin 94.9 % (94-97); Blood O2 Saturation 96.9 % (92-98.5)
--- NOTE | 2021-01-24 17:25 | P.PN ---
Subjective Date of Service: 01/24/21 Chief Complaint: hypoxia, COVID-19 No major changes from yesterday. Patient remained confused. Oxygen requirement alternating between BIPAP and Hiflo. Physical Examination - Vital Signs Temperature: 97.1 F Blood Pressure: 143/72 Pulse: 84 Respirations: 29 Pulse Ox (%): 98 - Physical Exam General: In no apparent distress, Confused, Other (Somnolent) HEENT: Mucous membr. moist/pink Neck: JVD not distended Respiratory: Other (Nonlabored breathing.) Cardiovascular: Regular rate/rhythm, Normal S1 S2 Gastrointestinal: Soft and benign, Non-distended, No tenderness Musculoskeletal: No swelling Integumentary: No rashes - Studies Microbiology Data (last 24 hrs): 01/19/21 11:20 Blood - Blood Aerobic Blood Culture - Final No growth in 5 days. 01/19/21 11:20 Blood - Blood Anaerobic Blood Culture - Final No growth in 5 days. 01/19/21 11:30 Blood - Blood Aerobic Blood Culture - Final 01/19/21 11:30 Blood - Blood Blood Culture Gram Stain - Final 01/19/21 11:30 Blood - Blood Anaerobic Blood Culture - Final No growth in 5 days. Assessment And Plan Physician Review Additional Text: Problem List acute hypoxemic respiratory failure secondary to COVID-19 infection NSTEMi secondary to demand ischemia / COVID-19 pneumonia COVID-19 pneumonia Influenza B + acute/new onset HFpEF - likely secondary to pneumonia Hypothyroidism DM2, non-insulin dependent h/o TIA Pancytopenia Anemia, chronic Cirrhosis Dementia, likely vascular acute delirium, secondary to infection and h/o dementia Continue steroids, vitamin supplementation, O2 as needed. requiring BIPAP/HFNC. not canddiate for baracitinib, remdesevir started 01/21, continue tamiflu concern for CHF exacerbation with pleural effusions, trace edema on admission CT negative for PE, +pleural effusions Continue IV Lasix. Status post IV albumin echo ordered - normal EF cardiology consulted - no further eval at this time, likely demand ischemia in setting of hypoxia / COVid pneumonia discussed with pulm - started levaquin on 01/21 Blood cultures: 07/18 bottles with [facility] in clusters, dc vanc, result CONS - likely contaminant, no skin lesions h/o GI bleed - reports intermittent bright red blood per rectum for 3-4 years, told ok as long as bright red blood per her doctor, last bled ~3 months ago no bleed since admission thrombocytopenia as well. Seen by hematology. Dr. Miranda recommending heparin drip as prophylaxis for thromboembolism, given high risk of thromboembolism with DIC and COVID 19 infection. Check ammonia level given AMS in the context of liver cirrhosis accucheks, SSI, lantus as needed; VTE: SCDs Code: full Dispo: anticipate hospitalization >2 days updated daughter. full code
[2021-01-24] MEDS ORDERED: FUROSEMIDE 40 MG/4 ML VIAL IV SCH (18:00)
[2021-01-24] MEDS ORDERED: HEPARIN/D5W 25,000 UNITS/500 ML BAG IV PRN (19:42)
[2021-01-24 20:27] LABS: Absolute Lymphocytes (CBC) 0.2 K/uL (0.7-4.9); Basophils % 0.3 % (0-1.3); Hematocrit 26.5 % (36.0-45.0); Lymphocytes % 2.1 % (15.3-44.8); MPV 9.8 fL (7.6-11.3); RBC Red Blood Cell Count 3.02 M/uL (3.86-4.86)
[2021-01-24 20:44] LABS: Protime INR 2.35
[2021-01-24] MEDS: GLUCERNA 1.2 CAL 1,000 ML BOT FT SCH (21:38)
--- NOTE | 2021-01-24 21:46 | P.CNS ---
Date of Consult: 01/24/21 (TV) Reason for Consult: resp fiaure from COVID Chief Complaint: hypoxia, COVID-19 History of Present Illness: Age 60 W resp failure from COVID, Symptoms worsened, Hypoxic,, Pancytopenia/Confused/ Metabloic synd Allergies codeine Adverse Reaction (Verified 03/23/17 17:51) Itching Home Medications: Clopidogrel Bisulfate [Plavix*] 75 mg PO DAILY 03/23/17 Levothyroxine [Synthroid*] 0.125 mg PO DAILY 03/23/17 Sertraline HCl 50 mg PO DAILY 03/23/17 - Past Medical/Surgical History -: Hypertension -: Hyperlipidemia -: Diabetes -: TIA -: Hypothyroidism -: Depression -: Neuropathy -: Osteoarthritis -: Cholecystectomy -: Knee surgery - Family History Father Medical History: Heart disease Mother Medical History: Heart disease Brother Medical History: Heart disease Sister Medical History: Heart disease - Social History Alcohol use: Yes CD- Drugs: No Caffeine use: No Place of Residence: Home Physical Examination Temp Pulse Resp BP Pulse Ox 97.6 F 90 38 H 128/67 90 L 01/24/21 20:00 01/24/21 20:00 01/24/21 21:33 01/24/21 20:00 01/24/21 21:33 - Problems (1) COVID Current Visit: Yes Status: Acute Plan: Pt is 60 yrs of ae AW resp failure from COVID and thrombocytopeni/ hypernatremia/ InR elevated/DC heapring/ ABG satifactoryCXRY COVID penumonia. Coagulopathy./ Avoid anticoagualtion/ Better on BIPAP in prone position/ pos for Influenza/ DC Vanc/and heparin DC LAsic hyoernatremia
[2021-01-25] MEDS: METHYLPREDNISOLONE 125 MG INJ IV SCH ×3 (00:15→16:05)
[2021-01-25 05:47] LABS: MPV 9.7 fL (7.6-11.3)
[2021-01-25 05:55] LABS: Potassium 3.3 mmol/L (3.5-5.1)
[2021-01-25 06:04] LABS: C-Reactive Protein 29.1 mg/L (<3.00); Ferritin 777.4 ng/mL (8-388)
[2021-01-25] MEDS: LEVOTHYROXINE SOD 0.125 MG TAB PO SCH (06:30)
[2021-01-25] MEDS: KCL 20 MEQ/100 mL IVPB 20 MEQ/100 ML BAG IV SCH ×2 (06:40→08:30)
[2021-01-25 06:49] LABS: Platelet Estimate DECR
[2021-01-25] MEDS ORDERED: NA CHLORIDE 0.9% 250 ML ONE (06:57)
[2021-01-25] MEDS: INSULIN -REGULAR HUMAN 50 UNIT/0.5 ML ML SQ SCH ×4 (07:16→17:36)
[2021-01-25] MEDS: FENTANYL CITR 100 MCG/2 ML IV PRN ×4 (07:17→22:27)
[2021-01-25] MEDS: THIAMINE 200 MG/2 ML INJ IVP SCH ×2 (08:30→20:57)
[2021-01-25] MEDS: GLUCERNA 1.2 CAL 1,000 ML BOT FT SCH (08:30)
[2021-01-25] MEDS: SERTRALINE HCL 50 MG TAB PO SCH (08:31)
[2021-01-25] MEDS: ASCORBIC ACID 500 MG TABLET PO SCH ×4 (08:31→21:00)
[2021-01-25] MEDS: FAMOTIDINE 20 MG TAB PO SCH ×2 (08:31→21:00)
[2021-01-25] MEDS: levoFLOXacin 500 MG TAB PO SCH (08:31)
[2021-01-25] MEDS: VITAMIN D 1000 UNIT TAB PO SCH (08:31)
[2021-01-25] MEDS ORDERED: FUROSEMIDE 40 MG/4 ML VIAL IV SCH (09:00)
[2021-01-25 09:26] LABS: Albumin 2.2 g/dL (3.4-5.0); Bilirubin Direct 2.5 mg/dL (0-0.2); Protein, Total 5.7 g/dL (6.4-8.2)
[2021-01-25 09:28] LABS: Bilirubin Total 6.1 mg/dL (0.2-1.0)
[2021-01-25] MEDS: REMDESIVIR (EUA) 100 MG in NA CHLORIDE 0.9% 250 ML IV SCH (09:47)
[2021-01-25] MEDS ORDERED: D5 0.45 NS 1,000 ML IV SCH (10:00)
[2021-01-25] MEDS ORDERED: FUROSEMIDE 20 MG/ 2ML VIAL IV SCH (17:00)
--- NOTE | 2021-01-25 17:08 | P.PN ---
Subjective Date of Service: 01/25/21 Chief Complaint: hypoxia, COVID-19 No major changes from yesterday. Patient remain confused and agitated. Sodium level is climbing. Patient alternating between BIPAP and Hiflo. Physical Examination - Vital Signs Temperature: 97.1 F Blood Pressure: 134/57 Pulse: 96 Respirations: 18 Pulse Ox (%): 95 - Physical Exam General: Confused HEENT: Mucous membr. moist/pink Respiratory: Other (Nonlabored breathing.) Cardiovascular: Regular rate/rhythm, Normal S1 S2 Gastrointestinal: Soft and benign, Non-distended Musculoskeletal: No swelling Integumentary: No rashes Neurological: Other (No focal motor deficit) Assessment And Plan Physician Review Additional Text: Problem List acute hypoxemic respiratory failure secondary to COVID-19 infection NSTEMi secondary to demand ischemia / COVID-19 pneumonia COVID-19 pneumonia Influenza B + acute/new onset HFpEF - likely secondary to pneumonia Hypothyroidism DM2, non-insulin dependent h/o TIA Pancytopenia Anemia, chronic Cirrhosis Dementia, likely vascular acute delirium, secondary to infection and h/o dementia Continue steroids, vitamin supplementation, O2 as needed. requiring BIPAP/HFNC. not canddiate for baracitinib, remdesevir started 01/21, continue tamiflu concern for CHF exacerbation with pleural effusions, trace edema on admission CT negative for PE, +pleural effusions Continue IV Lasix. Status post IV albumin echo- normal EF. Status slow IV hydration given hypernatremia and poor oral intake. cardiology consulted - no further eval at this time, likely demand ischemia in setting of hypoxia / COVid pneumonia Continue levaquin on 01/21 Blood cultures: 1/4 bottles with [facility] in [place], dc vanc, result CONS - likely contaminant, no skin lesions h/o GI bleed - reports intermittent bright red blood per rectum for 3-4 years. no bleed since admission thrombocytopenia. Seen by hematology. Dr. Miranda recommending heparin drip as prophylaxis for thromboembolism, given high risk of thromboembolism with DIC and COVID 19 infection. Pulmonary recommend holding off heparin drip Ammonia level within normal limit. accucheks, SSI, lantus as needed; VTE: SCDs Code: Full. Disposition: Unstable for transfer anywhere.
[2021-01-25 17:34] LABS: BUN Blood Urea Nitrogen 27 mg/dL (7-18); Bicarbonate 32 mmol/L (21-32); Glucose Level 235 mg/dL (74-106); Potassium 3.6 mmol/L (3.5-5.1); Sodium Level 154 mmol/L (136-145)
--- NOTE | 2021-01-25 17:59 | P.PN ---
Subjective Date of Service: 01/25/21 Chief Complaint: hypoxia, COVID-19. unresponc Pt is unresponsive Physical Examination - Vital Signs Temperature: 97.1 F Blood Pressure: 134/57 Pulse: 96 Respirations: 18 Pulse Ox (%): 95 Assessment & Plan - Problems (Diagnosis) (1) COVID Current Visit: Yes Status: Acute Plan: Pt is unresponsive, Hyprnatremia, Eleonora IV fluid for now, Hemolysis? ELevated indirect bilitubin, with throbocytopenia. not eating and drinking/ avoid heparin/ normal WBC Inc IV fluid for now. Hypernatremia has worsened / Pt is on BIPAP Check PT and INR again/ Littel evidence to support use of anticoagulation in Acute or chronic DIC/ Evaluate for nitrition/ Likely DIC from COVID/ Prognosis very poor.
[2021-01-25] MEDS: D5 0.45 NS 1,000 ML IV SCH (18:00)
[2021-01-25] MEDS ORDERED: KCL 20 MEQ/100 mL IVPB 20 MEQ/100 ML BAG IV SCH (18:00)
[2021-01-25 21:27] LABS: Protime INR 3.4
[2021-01-25 22:00] LABS: Absolute Lymphocytes (CBC) 0.1 K/uL (0.7-4.9); Basophils % 0.3 % (0-1.3); Hematocrit 24.3 % (36.0-45.0); Lymphocytes % 2.1 % (15.3-44.8); MPV 9.6 fL (7.6-11.3); RBC Red Blood Cell Count 2.75 M/uL (3.86-4.86)
[2021-01-25] MEDS: METOPROLOL TARTRATE 5 MG/5 ML INJ IV PRN (22:48)
[2021-01-26] MEDS: METHYLPREDNISOLONE 125 MG INJ IV SCH ×3 (00:14→16:14)
[2021-01-26] MEDS: INSULIN -REGULAR HUMAN 50 UNIT/0.5 ML ML SQ SCH ×4 (00:15→17:24)
[2021-01-26] MEDS: D5 0.45 NS 1,000 ML IV SCH ×4 (01:28→21:44)
[2021-01-26 05:16] LABS: Protime INR 3.67
[2021-01-26 05:19] LABS: Absolute Lymphocytes (CBC) 0.2 K/uL (0.7-4.9); Basophils % 0.3 % (0-1.3); Hematocrit 23.9 % (36.0-45.0); Lymphocytes % 2.2 % (15.3-44.8); MPV 9.5 fL (7.6-11.3); RBC Red Blood Cell Count 2.69 M/uL (3.86-4.86)
[2021-01-26 05:31] LABS: ALT/SGPT 59 U/L (12-78); AST/SGOT 104 U/L (15-37); Albumin 1.9 g/dL (3.4-5.0); Alkaline Phosphatase 188 U/L (45-117); Amylase 54 U/L (25-115); BUN Blood Urea Nitrogen 28 mg/dL (7-18); Bicarbonate 33 mmol/L (21-32); Ferritin 741.8 ng/mL (8-388); Glucose Level 297 mg/dL (74-106); Potassium 3.6 mmol/L (3.5-5.1); Protein, Total 5.2 g/dL (6.4-8.2); Sodium Level 152 mmol/L (136-145)
[2021-01-26 05:37] LABS: Bilirubin Total 7.4 mg/dL (0.2-1.0)
[2021-01-26] MEDS: LEVOTHYROXINE SOD 0.125 MG TAB PO SCH (06:30)
[2021-01-26] MEDS ORDERED: KCL 20 MEQ/100 mL IVPB 20 MEQ/100 ML BAG IV SCH (07:00)
[2021-01-26] MEDS: FENTANYL CITR 100 MCG/2 ML IV PRN ×3 (07:26→20:36)
[2021-01-26] MEDS: THIAMINE 200 MG/2 ML INJ IVP SCH ×2 (07:28→20:36)
[2021-01-26] MEDS: ASCORBIC ACID 500 MG TABLET PO SCH ×4 (07:28→20:38)
[2021-01-26] MEDS: VITAMIN D 1000 UNIT TAB PO SCH (07:28)
[2021-01-26] MEDS: SERTRALINE HCL 50 MG TAB PO SCH (07:28)
[2021-01-26] MEDS: FAMOTIDINE 20 MG TAB PO SCH ×2 (07:28→20:37)
[2021-01-26] MEDS: levoFLOXacin 500 MG TAB PO SCH (07:28)
--- NOTE | 2021-01-26 08:13 | RAD REPORT ---
EXAM DESCRIPTION: RAD - Chest Single View - 01/26/2021 5:39 am CLINICAL HISTORY: RESp failure COMPARISON: Chest Single View dated 01/23/2021; Chest Single View dated 01/22/2021; Chest Single View dated 01/21/2021; Chest Single View dated 01/20/2021 FINDINGS: Improved aeration of the lung bases bilaterally but the overall appearance of bilateral in terstitial and airspace disease is similar to 01/22/2021 when taking into account some differences in technique. Cardiomegaly.No acute osseous abnormality. No significant pleural effusions or pneumothor ax. IMPRESSION: Improved lung volumes compared with 01/23/2021 but otherwise similar appearing bilateral interstitial airspace disease which may reflect multifocal pneumonia with or without edema. .
[2021-01-26] MEDS ORDERED: VITAMIN K (ADULT) 10 MG/ML SQ ONE (08:23)
[2021-01-26] MEDS ORDERED: FUROSEMIDE 20 MG/ 2ML VIAL IV ONE (08:55)
[2021-01-26] MEDS ORDERED: NA CHLORIDE 0.9% 250 ML IV SCH ×2 (09:00→19:00)
[2021-01-26] MEDS ORDERED: NA CHLORIDE 0.9% 250 ML ONE ×2 (10:48→18:23)
--- NOTE | 2021-01-26 13:03 | P.PN ---
Subjective Date of Service: 01/26/21 Chief Complaint: hypoxia, COVID-19. unresponc Patient is getting sicker. Bilirubin is trending up. Stool is hemoccult positive. Hemoglobin dropped. No improvement in mental status She remain confused and agitated. She has hypernatremia She is dependent on BIPAP and Hiflo. Physical Examination - Vital Signs Temperature: 97.6 F Blood Pressure: 141/65 Pulse: 91 Respirations: 20 Pulse Ox (%): 95 - Physical Exam General: Confused HEENT: Other (High-flow oxygen) Neck: JVD not distended Respiratory: Other (Nonlabored breathing) Cardiovascular: Regular rate/rhythm, Normal S1 S2 Gastrointestinal: Soft and benign, Non-distended, No tenderness Musculoskeletal: No contractures Integumentary: No rashes Neurological: Other (Confused and agitated. She moves all extremities spontaneously) Assessment And Plan Physician Review Additional Text: Problem List acute hypoxemic respiratory failure secondary to COVID-19 infection NSTEMi secondary to demand ischemia / COVID-19 pneumonia COVID-19 pneumonia Influenza B + acute/new onset HFpEF - likely secondary to pneumonia Hypothyroidism DM2, non-insulin dependent h/o TIA Pancytopenia Acute on chronic anemia Cirrhosis Dementia, likely vascular acute delirium, secondary to infection and h/o dementia. Coagulopathy. Continue steroids, vitamin supplementation, O2 as needed. requiring BIPAP/HFNC. not candidate for baracitinib, completed remdesivir and Tamiflu. concern for CHF exacerbation with pleural effusions, trace edema on admission CT negative for PE, +pleural effusions IV Lasix p.r.n. status post albumin infusion. echo- normal EF. Continue IV D5 half-normal saline for hypernatremia. cardiology consulted - no further eval at this time, likely demand ischemia in setting of hypoxia / COVid pneumonia Antibiotics discontinued Blood cultures: 1/4 bottles with [facility] in [facility], dc vanc, result CONS - likely contaminant, no skin lesions h/o GI bleed - reports intermittent bright red blood per rectum for 3-4 years. Stool Hemoccult-positive thrombocytopenia. Seen by hematology. Dr. Miranda recommending heparin drip as prophylaxis for thromboembolism, given high risk of thromboembolism with DIC and COVID 19 infection. Pulmonary recommend holding off heparin drip given dropping hemoglobin and positive stool occult blood. Ammonia level within normal limit. accucheks, SSI, lantus as needed; Poor prognosis. Patient not responding to treatment. Attempt to reach her daughter to discuss DNR was unsuccessful today. VTE: SCDs Code: Full. Disposition: Unstable for transfer anywhere.
[2021-01-26 20:23] LABS: Hematocrit 23.9 % (36.0-45.0); Platelet Estimate ND
--- NOTE | 2021-01-26 21:29 | P.PN ---
Subjective Date of Service: 01/26/21 (TV) Chief Complaint: hypoxia, COVID-19. unresponc No change. Unresponsive Physical Examination - Vital Signs Temperature: 98.8 F Blood Pressure: 122/77 Pulse: 97 Respirations: 19 Pulse Ox (%): 85 Assessment & Plan - Problems (Diagnosis) (1) COVID Current Visit: Yes Status: Acute Plan: REsp failure/ Bilirubin more elevated/ Replace platelets/ BP fine/ Pt moans/Fio2 70%, FFP and Cryoppt/ plan for Dobhoff/ prog poor/ Consider DNR Physician Review Additional Text: Problem List acute hypoxemic respiratory failure secondary to COVID-19 infection NSTEMi secondary to demand ischemia / COVID-19 pneumonia COVID-19 pneumonia Influenza B + acute/new onset HFpEF - likely secondary to pneumonia Hypothyroidism DM2, non-insulin dependent h/o TIA Pancytopenia Acute on chronic anemia Cirrhosis Dementia, likely vascular acute delirium, secondary to infection and h/o dementia. Coagulopathy. Continue steroids, vitamin supplementation, O2 as needed. requiring BIPAP/HFNC. not candidate for baracitinib, completed remdesivir and Tamiflu. concern for CHF exacerbation with pleural effusions, trace edema on admission CT negative for PE, +pleural effusions IV Lasix p.r.n. status post albumin infusion. echo- normal EF. Continue IV D5 half-normal saline for hypernatremia. cardiology consulted - no further eval at this time, likely demand ischemia in setting of hypoxia / COVid pneumonia Antibiotics discontinued Blood cultures: 1/4 bottles with [facility] in [facility], dc vanc, result CONS - likely contaminant, no skin lesions h/o GI bleed - reports intermittent bright red blood per rectum for 3-4 years. Stool Hemoccult-positive thrombocytopenia. Seen by hematology. Dr. Miranda recommending heparin drip as prophylaxis for thromboembolism, given high risk of thromboembolism with DIC and COVID 19 infection. Pulmonary recommend holding off heparin drip given dropping hemoglobin and positive stool occult blood. Ammonia level within normal limit. accucheks, SSI, lantus as needed; Poor prognosis. Patient not responding to treatment. Attempt to reach her daughter to discuss DNR was unsuccessful today. VTE: SCDs Code: Full. Disposition: Unstable for transfer anywhere.
[2021-01-26] MEDS: FAMOTIDINE 20 MG/2 ML VIAL IV SCH (23:30)
[2021-01-27] MEDS: METHYLPREDNISOLONE 125 MG INJ IV SCH ×3 (00:16→15:59)
[2021-01-27] MEDS: INSULIN -REGULAR HUMAN 50 UNIT/0.5 ML ML SQ SCH ×4 (00:17→17:48)
[2021-01-27] MEDS: FENTANYL CITR 100 MCG/2 ML IV PRN ×4 (01:45→20:00)
[2021-01-27] MEDS: D5 0.45 NS 1,000 ML IV SCH ×4 (04:58→21:22)
[2021-01-27] MEDS: LEVOTHYROXINE SOD 0.125 MG TAB PO SCH (06:05)
[2021-01-27 06:17] LABS: BUN Blood Urea Nitrogen 29 mg/dL (7-18); Bicarbonate 35 mmol/L (21-32); Glucose Level 293 mg/dL (74-106); Potassium 3.4 mmol/L (3.5-5.1); Sodium Level 153 mmol/L (136-145)
[2021-01-27 06:21] LABS: Protime INR 2.21
[2021-01-27 06:24] LABS: Magnesium 2.1 mg/dL (1.8-2.4)
[2021-01-27 06:48] LABS: MPV 9.3 fL (7.6-11.3)
[2021-01-27] MEDS ORDERED: KCL 20 MEQ/100 mL IVPB 20 MEQ/100 ML BAG IV SCH ×2 (07:00→16:00)
[2021-01-27 07:33] LABS: Absolute Lymphocytes (CBC) 0.1 K/uL (0.7-4.9); Basophils % 0.1 % (0-1.3); Hematocrit 22.2 % (36.0-45.0); Lymphocytes % 1.5 % (15.3-44.8)
[2021-01-27] MEDS: THIAMINE 200 MG/2 ML INJ IVP SCH ×2 (07:39→20:00)
[2021-01-27] MEDS: FAMOTIDINE 20 MG/2 ML VIAL IV SCH ×2 (07:39→20:00)
--- NOTE | 2021-01-27 07:39 | RAD REPORT ---
EXAM DESCRIPTION: RAD - Chest Single View - 01/27/2021 5:42 am CLINICAL HISTORY: RESp failure COMPARISON: Chest Single View dated 01/26/2021; Chest Single View dated 01/23/2021; Chest Single View dated 01/22/2021; Chest Single View dated 01/21/2021 FINDINGS: No significant change compared with 01/26/2021. Prominence of the interstitial markings wi th scattered ill-defined airspace opacities. Cardiomegaly. IMPRESSION: No significant change compared with 01/26/2021 with either multifocal pneumonia and/or e gloria.
[2021-01-27] MEDS: ASCORBIC ACID 500 MG TABLET PO SCH ×4 (07:40→20:21)
[2021-01-27] MEDS: VITAMIN D 1000 UNIT TAB PO SCH (07:40)
[2021-01-27] MEDS: SERTRALINE HCL 50 MG TAB PO SCH (07:40)
[2021-01-27 08:17] LABS: Platelet Estimate DECR
[2021-01-27] MEDS ORDERED: POTASSIUM PHOS IN 0.9 % NACL 15 MMOL/250 ML BAG IV ONE (09:00)
--- NOTE | 2021-01-27 11:47 | EKG ---
Test Date: 2021-01-25 Test Time: 22:43:36 Sole Conditioner: RT-O MEASUREMENT RESULTS: Intervals: Rate: 120 SD: QRSD: 106 QT: 376 QTc: 531 [place]: P: SD: QRS: -54 T: 148 INTERPRETIVE STATEMENTS: Atrial fibrillation with rapid ventricular response Left anterior fascicular block Minimal voltage criteria for LVH, may be normal variant Cannot rule out Anterior infarct, age undetermined ST & T wave abnormality, consider lateral ischemia or digitalis effect Abnormal ECG Compared to ECG 01/23/2021 12:42:44 Left ventricular hypertrophy now present Supraventricular tachycardia no longer present Myocardial infarct finding still present ST (T wave) deviation still present Possible ischemia still present Electronically Signed On 01-27-21 11:42:32 CDT by Michael Alex
--- NOTE | 2021-01-27 12:49 | P.PN ---
Subjective Date of Service: 01/27/21 Chief Complaint: hypoxia, COVID-19. unresponc Patient remain unresponsive. Bilirubin is trending up. Stool is hemoccult positive. Status post PRBC transfusion, FFP, cryoprecipitate and platelets. She is dependent on BIPAP and Hiflo. Ammonia level is higher today. Physical Examination - Vital Signs Temperature: 96.5 F Blood Pressure: 142/85 Pulse: 109 Respirations: 17 Pulse Ox (%): 90 - Physical Exam General: Unresponsive HEENT: Mucous membr. moist/pink Neck: JVD not distended Respiratory: Other (Nonlabored breathing) Cardiovascular: Other (Tachycardia), Edema Gastrointestinal: Soft and benign, Non-distended, No tenderness Musculoskeletal: No contractures Integumentary: No rashes, No erythema Neurological: Other (She moves all extremities spontaneously) Assessment And Plan Physician Review Additional Text: Problem List acute hypoxemic respiratory failure secondary to COVID-19 infection NSTEMi secondary to demand ischemia / COVID-19 pneumonia COVID-19 pneumonia Influenza B + acute/new onset HFpEF - likely secondary to pneumonia Hypothyroidism DM2, non-insulin dependent h/o TIA Pancytopenia Acute on chronic anemia Cirrhosis Dementia, likely vascular acute delirium, secondary to infection and h/o dementia. Coagulopathy. Continue steroids, vitamin supplementation, O2 as needed. requiring BIPAP/HFNC. not candidate for baracitinib, completed remdesivir and Tamiflu. CT negative for PE, +pleural effusions IV Lasix p.r.n. status post albumin infusion. echo- normal EF. Continue IV D5 half-normal saline for hypernatremia. Seen by cardiology - no further eval at this time, likely demand ischemia in setting of hypoxia / COVid pneumonia Antibiotics discontinued Blood cultures: 1/4 bottles with GPC in [facility] dc vanc, likely contaminant, no skin lesions h/o GI bleed - reports intermittent bright red blood per rectum for 3-4 years. Stool Hemoccult-positive. Patient with dark tarry stools. thrombocytopenia. Seen by hematology. Dr. Miranda recommending heparin drip as prophylaxis for thromboembolism, given high risk of thromboembolism with DIC and COVID 19 infection. Pulmonary recommend holding off heparin drip given dropping hemoglobin, positive stool occult blood and dark tarry stool. Ammonia level is high today. Void constipation. accucheks, SSI, lantus as needed; Poor prognosis. Patient not responding to treatment. Spoke to the and the daughter. They wish patient to remain full code. VTE: SCDs Code: Full.
--- NOTE | 2021-01-27 13:50 | RAD REPORT ---
EXAM DESCRIPTION: RAD - Abdomen 1 View (KUB) - 01/27/2021 1:44 pm CLINICAL HISTORY: dobbhoff placement Pain COMPARISON: No comparisons FINDINGS: Enteric tube tip is likely in right lower lobe bronchus. Rowena in the ICU was notified at the time of this dictation.
--- NOTE | 2021-01-27 17:13 | P.PN ---
Subjective Date of Service: 01/27/21 (TV) Chief Complaint: hypoxia, COVID-19. unresponsive No change/ unable to insert Murali Physical Examination - Vital Signs Temperature: 96.5 F Blood Pressure: 142/85 Pulse: 109 Respirations: 17 Pulse Ox (%): 90 Assessment & Plan - Problems (Diagnosis) (1) COVID Current Visit: Yes Status: Acute Plan: NC/Reatempt murali amThormbocytopenia stable. NC in [place] / INT declining Sig ILD / Prog poor/ Try ivermectin when Dobhoff is in. LAbs reviewed. Ammonis elevated/ On high concentration of Fio2
[2021-01-27] MEDS ORDERED: IVERMECTIN 3 MG TABLET PO SCH (18:00)
--- NOTE | 2021-01-27 22:13 | CON ---
Date of Consultation: 01/27/2021 Brief History Of Present Illness: The patient is a 60-year-old female with past medical history of h ypertension, hyperlipidemia, diabetes, TIA, and asthma, who presents with approximately one to two we eks of progressively worsening shortness of breath beginning on 01/19/2021, which was her day of admi ssion. She had intermittent chest pain. She had been worked up and found to have dyspnea with exert ion, found to be hypoxic, sats at the 80% on room air. She was COVID positive. Flu B positive. CT negative for PE, small bilateral pleural effusions, and pancytopenic. She has been in the hospital r equiring oxygen support at a stable level and they have been unable to place any feeding access as th e patient continues to be non-compliant. Multiple attempts to place a Dobbhoff tube have been unsucc essful. As such, I am consulted for possible endo [place] or post pyloric feeding access via the nasogast elysia/nasoduodenal route. The patient is nonconversant and the information is obtained from the chart. Past Medical History: Significant for hyperlipidemia, diabetes, TIA, hypothyroidism, depression, adonis ropathy, and osteoarthritis. Past Surgical History: Includes cholecystectomy, knee surgery. Father had heart disease as well as mother, brother and sister both had heart disease. Smoking history, denied smoking, alcohol, recreat ional drug use by chart. Review of Systems: A 10-point review of systems is unable to obtain. Medications: Home medications include atorvastatin, Plavix, Neurontin, Synthroid, sertraline, lisino pril, Levemir, and Protonix. Allergies: TO CODEINE, WHICH CAUSES ITCHING. Physical Examination: Vital Signs: At the time of examination, her vital signs were a temperature of 99.2, heart rate was 115, blood pressure 125/66, and SpO2 was 90% on high-flow oxygen approximately 35% flow. General: The patient was awake, but not conversive, somewhat delirious and combative. HEENT: Otherwise high-flow oxygen via nasal cannula was present. Chest: Normal expansion and excursion. Pulmonary: Clear to auscultation bilaterally. Abdomen: Soft, nontender, and nondistended. Extremities: No clubbing, cyanosis, or edema. Laboratory Data: Revealed a white blood cell count of 7.7, hemoglobin 7.4, hematocrit 22.2, platelet count was 55, and neutrophils were 94%. Her coags showed a PT of 25.6, INR 2.2, and PTT is 32.3. H er sodium was 153, potassium 3.4, chloride 115, carbon dioxide 35, BUN 29 creatinine 0.6, and glucose is 293. Her COVID was positive. Her most recent chest x-ray showed no significant change when comp ared with either multifactorial pneumonia and/or edema. Dobbhoff tube was attempted and the official read was enteric tube is likely in the right lower lobe bronchus, as such it was removed. Assessment And Plan: This is a 60-year-old female with multiple medical problems in need of enteral access. Multiple attempts have been unsuccessful. As such, I have been consulted for possible nasod uodenal feeding access. 1.Continue medical management. 2.Correct her coagulopathy. 3.We will proceed with bedside nasojejunal feeding tube via EGD. No biopsies will be performed as t he patient's INR is supratherapeutic. As such, we will simply position the NG tube in place in the p ost pyloric position and use as feeding access. I have explained the risks, benefits, and alternativ es of the above stated plan to the patient's family. They agreed to proceed as indicated. MYRON/SUKHJINDER Voice ID: [id number] Report ID: [id number]
[2021-01-27 22:26] LABS: Arterial Blood Carboxyhemoglob 1.8 % (0-1.5); Blood Gas Oxyhemoglobin 92.7 % (94-97); Blood O2 Saturation 95.5 % (92-98.5)
[2021-01-28] MEDS: INSULIN -REGULAR HUMAN 50 UNIT/0.5 ML ML SQ SCH ×4 (00:12→18:33)
[2021-01-28] MEDS: METHYLPREDNISOLONE 125 MG INJ IV SCH ×3 (00:12→16:29)
[2021-01-28] MEDS: D5 0.45 NS 1,000 ML IV SCH ×3 (03:12→16:28)
[2021-01-28] MEDS: LEVOTHYROXINE SOD 0.125 MG TAB PO SCH (05:07)
[2021-01-28 05:37] VITALS: BMI 38.5
[2021-01-28 05:38] LABS: Absolute Lymphocytes (CBC) 0.3 K/uL (0.7-4.9); Basophils % 0.2 % (0-1.3); Hematocrit 22.9 % (36.0-45.0); Lymphocytes % 3.9 % (15.3-44.8); MPV 9.1 fL (7.6-11.3); RBC Red Blood Cell Count 2.55 M/uL (3.86-4.86)
[2021-01-28 06:27] LABS: Albumin 2.2 g/dL (3.4-5.0); Ferritin 551.5 ng/mL (8-388); Magnesium 2.2 mg/dL (1.8-2.4); Phosphorus 2.2 mg/dL (2.5-4.9); Potassium 3.6 mmol/L (3.5-5.1); Protein, Total 5.2 g/dL (6.4-8.2)
[2021-01-28 06:37] LABS: Bilirubin Total 10.5 mg/dL (0.2-1.0)
--- NOTE | 2021-01-28 07:04 | RAD REPORT ---
EXAM DESCRIPTION: RAD - Chest Single View - 01/28/2021 6:43 am CLINICAL HISTORY: RESp failure COMPARISON: Abdomen 1 View (KUB) dated 01/27/2021; Chest Single View dated 01/27/2021; Chest Single Vi ew dated 01/26/2021; Chest Single View dated 01/23/2021 FINDINGS: No significant change in aeration lungs with bilateral interstitial and airspace opacities . Cardiomegaly.No acute osseous abnormality. No significant pleural effusions or pneumothorax. IMPRESSION: No change in aeration of the lungs with bilateral interstitial and airspace disease that may reflect either multifocal pneumonia and/or edema.
[2021-01-28] MEDS: SERTRALINE HCL 50 MG TAB PO SCH (07:41)
[2021-01-28] MEDS: VITAMIN D 1000 UNIT TAB PO SCH (07:41)
[2021-01-28] MEDS: ASCORBIC ACID 500 MG TABLET PO SCH (07:41)
[2021-01-28] MEDS ORDERED: POTASSIUM PHOS IN 0.9 % NACL 15 MMOL/250 ML BAG IV ONE (08:00)
[2021-01-28 09:26] LABS: Platelet Estimate DECR; White Blood Cell Scan OK (OK)
[2021-01-28 09:27] LABS: Anisocytosis 1+; Blood Morphology Comment NOTED (NOT SEEN); Ovalocytes 1+; Rouleau NOTED
[2021-01-28] MEDS ORDERED: propofoL 200 MG/20 ML VIAL IV ONE (09:27)
[2021-01-28] MEDS: LACTULOSE 20 GM/30 ML UCUP PO SCH ×2 (10:39→18:33)
[2021-01-28] MEDS: THIAMINE 200 MG/2 ML INJ IVP SCH ×2 (10:40→19:50)
[2021-01-28] MEDS: FAMOTIDINE 20 MG/2 ML VIAL IV SCH ×2 (10:40→19:50)
[2021-01-28 12:29] LABS: Arterial Blood Carboxyhemoglob 1.7 % (0-1.5); Blood Gas Oxyhemoglobin 95.3 % (94-97); Blood O2 Saturation 97.8 % (92-98.5)
[2021-01-28] MEDS ORDERED: GLUCERNA 1.2 CAL 1,000 ML BOT FT SCH ×2 (13:00)
[2021-01-28] MEDS ORDERED: VANCOMYCIN 1.25 GM in NA CHLORIDE 0.9% 250 ML IVPB SCH (14:00)
[2021-01-28] MEDS: FENTANYL CITR 100 MCG/2 ML IV PRN (14:01)
[2021-01-28] MEDS: METOPROLOL TARTRATE 5 MG/5 ML INJ IV PRN (14:19)
[2021-01-28] MEDS ORDERED: VANCOMYCIN 1.75 GM in NA CHLORIDE 0.9% 500 ML IVPB SCH (15:00)
[2021-01-28] MEDS ORDERED: CEFEPIME/SWI 1gm 10 ML IV SCH (15:00)
--- NOTE | 2021-01-28 16:58 | P.PN ---
Subjective Date of Service: 01/28/21 (TV) Chief Complaint: Condition worse. Unresponsive. Jaundiced / DIC. indirect hyperbilirubinemia Physical Examination - Vital Signs Temperature: 97.0 F Blood Pressure: 155/78 Pulse: 98 Respirations: 24 Pulse Ox (%): 93 Assessment & Plan - Problems (Diagnosis) (1) COVID Current Visit: Yes Status: Acute Plan: Worse Bilirubin worse more anemic. Likley intravascular hemolysis, DIC by COIVD, increase NG fluids, still hyernatremic/ ABG satisfactory/ Can reduce O2/CXRY NC/DC Vanc for now cW cefepime/ Need to titrate O2 down/ Not madeline if stable for transfer DW hospitalist and ICU nurse
[2021-01-28 18:06] VITALS: O2SAT 90
--- NOTE | 2021-01-28 18:37 | P.DS ---
Admission Date: 01/19/21 Discharge Date: 01/28/21 Disposition: TRANSFR TO OTHER-PSY/CD/REHAB Discharge Condition: CRITICAL Reason for Admission: Condition worse. - Problems (1) Pneumonia due to COVID-19 virus Status: Acute (2) Acute respiratory failure with hypoxia Status: Acute (3) Acute liver failure Status: Acute (4) DIC (disseminated intravascular coagulation) Status: Acute (5) Pancytopenia Status: Acute (6) Acute metabolic encephalopathy Status: Acute Brief History of Present Illness: 60yo woman, PMH: HTN, HLD, DM2 (diet controlled), TIA, asthma presented to ED due to 1-2 weeks of progressively worsening shortness of breath. Patient found to be hypoxic 80% on RA, COVID-19+, flu b+, CT chest negative for PE, + small b/l pleural effusions, pancytopenia. She reported her daughter and her family have been COVID+ recently / symptomatic. She is not vaccinated. She also reported rectal bleed has been going on for years, intermittently. Patient hospitalized for further management. Hospital Course: Patient admitted to medical floor and treated with IV steroids, vitamin supplementation for COVID pneumonia protocol. She required BIPAP/HFNC. Patient developed confusion and later became unresponsive She was considered not a candidate for baracitinib. She completed remdesivir and Tamiflu. CT negative for PE, +pleural effusions She was treated for IV Lasix p.r.n. and albumin infusion. Echo done showed normal EF. Patient did not tolerate feeding due to altered mental status. She developed hypernatremia which was treated with IV D5 half-normal saline. Seen by cardiology - no further eval at this time, likely demand ischemia in setting of hypoxia / COVid pneumonia She was treated with multiple Antibiotics which was later discontinued. Blood cultures: 1/ bottles with GPC in [facility]. She was treated with vancomycin briefly and later discontinued. h/o GI bleed - reports intermittent bright red blood per rectum for 3-4 years. Stool Hemoccult-positive. Patient with dark tarry stools. Also has thrombocytopenia. Seen by hematology. DIC suspected. Dr. Miranda recommended heparin drip as prophylaxis for thromboembolism, given high risk of thromboembolism with DIC and COVID 19 infection. Pulmonary recommend holding off heparin drip given dropping hemoglobin, positive stool occult blood and dark tarry stool. Ammonia level and bilirubin got elevated indicating acute liver failure. accucheks, SSI, lantus as needed; Poor prognosis. Patient not responding to treatment Spoke to the and the daughter. They wish patient to remain full code. Patient was subsequently transferred to [facility] to continue COVID pneumonia treatment. Vital Signs/Physical Exam: Temp Pulse Resp BP Pulse Ox 97.0 F 98 H 24 H 155/78 H 93 01/28/21 16:58 01/28/21 16:58 01/28/21 16:58 01/28/21 16:58 01/28/21 16:58 General: Unresponsive HEENT: Mucous membr. moist/pink, Scleral icterus Neck: JVD not distended Respiratory: Clear to auscultation bilaterally, Normal air movement Cardiovascular: Normal S1 S2 Gastrointestinal: Soft and benign, Non-distended, No tenderness Musculoskeletal: No swelling Neurological: Other (Moves all extremities.) Laboratory Data at Discharge: WBC 8.80 K/uL (4.3-10.9) D 01/28/21 04:50 Hgb 7.4 g/dL (12.0-15.0) L 01/28/21 04:50 Hct 22.9 % (36.0-45.0) L 01/28/21 04:50 Plt Count 49 K/uL (152-406) L* 01/28/21 04:50 PT Cancelled 01/27/21 06:00 INR Cancelled 01/27/21 06:00 APTT 32.3 SECONDS (24.3-36.9) 01/27/21 04:45 Sodium 153 mmol/L (136-145) H 01/28/21 04:50 Potassium 3.6 mmol/L (3.5-5.1) 01/28/21 04:50 BUN 32 mg/dL (7-18) H 01/28/21 04:50 Creatinine 0.78 mg/dL (0.55-1.3) 01/28/21 04:50 Glucose 358 mg/dL (74-106) H 01/28/21 04:50 Phosphorus 2.2 mg/dL (2.5-4.9) L 01/28/21 04:50 Magnesium 2.2 mg/dL (1.8-2.4) 01/28/21 04:50 Total Bilirubin 10.5 mg/dL (0.2-1.0) H* 01/28/21 04:50 AST 85 U/L (15-37) H 01/28/21 04:50 ALT 68 U/L (12-78) 01/28/21 04:50 Alkaline Phosphatase 177 U/L (45-117) H 01/28/21 04:50 Troponin I 0.12 ng/mL (0.0-0.045) H 01/20/21 11:31 Amylase 54 U/L (25-115) 01/26/21 04:50 Home Medications: Clopidogrel Bisulfate [Plavix*] 75 mg PO DAILY 03/23/17 Levothyroxine [Synthroid*] 0.125 mg PO DAILY 03/23/17 Sertraline HCl 50 mg PO DAILY 03/23/17 Followup: Emile Tim MD [Primary Care Provider] - Time spent managing pt's care (in minutes): 46
[2021-01-28 20:09] VITALS: BP 154/72; TEMP 98.3
[2021-01-28] MEDS ORDERED: LORazepam 2 MG/ML VIAL IV ONE (20:35)
[2021-01-28] MEDS ORDERED: LORazepam 2 MG/ML VIAL ONE (20:57)
[2021-01-28] MEDS ORDERED: CEFEPIME 1 GM/VIAL IV SCH (21:00)
== END 2021-01-28 20:40 | DRG 177 ==
LOC: ER 10:56 → ERHOLD 14:10 → 4TH 16:47 → 3RD-ICU 01-22 17:32
PROVIDERS: ADMIT Hospitalist; ATTEND Internal Medicine
PROC: 5A09357 Assistance with Respiratory Ventilation, Less than 24 Consecutive Hours, Continuous Positive Airway Pressure (ICD-10-PCS; principal; 2021-01-27)
DX: U07.1 COVID-19 (principal); I21.A1 Myocardial infarction type 2; J96.01 Acute respiratory failure with hypoxia; J12.82 Pneumonia due to coronavirus disease 2019; D65 Disseminated intravascular coagulation [defibrination syndrome]; G93.41 Metabolic encephalopathy; I50.33 Acute on chronic diastolic (congestive) heart failure; K72.00 Acute and subacute hepatic failure without coma; D61.818 Other pancytopenia; E87.0 Hyperosmolality and hypernatremia; J10.1 Influenza due to other identified influenza virus with other respiratory manifestations; I10 Essential (primary) hypertension; E78.5 Hyperlipidemia, unspecified; E11.9 Type 2 diabetes mellitus without complications; J45.909 Unspecified asthma, uncomplicated; Z86.73 Personal history of transient ischemic attack (TIA), and cerebral infarction without residual deficits; E03.9 Hypothyroidism, unspecified; F32.9 Major depressive disorder, single episode, unspecified; G62.9 Polyneuropathy, unspecified; M19.90 Unspecified osteoarthritis, unspecified site; D64.9 Anemia, unspecified; K74.60 Unspecified cirrhosis of liver; F01.50 Vascular dementia, unspecified severity, without behavioral disturbance, psychotic disturbance, mood disturbance, and anxiety; R41.0 Disorientation, unspecified; Z23 Encounter for immunization; E66.9 Obesity, unspecified; Z68.38 Body mass index [BMI] 38.0-38.9, adult
CPT/HCPCS: 36415; 36430; 71045; 71275; 74018; 76705; 80048; 80053; 80076; 80202; 81001; 81003; 82140; 82150; 82248; 82274; 82728; 82805; 82947; 83540; 83605; 83735; 84100; 84132; 84145; 84466; 84484; 85014; 85018; 85025; 85044; 85049; 85379; 85384; 85610; 85730; 86140; 86850; 86900; 86901; 87040; 87205; 87804; 93005; 93306; 94003; 94660; 94760; 96372; 96374; 96375; 99285; J0692; J1650; J1940; J2704; J2930; J3010; J3370; J3411; J3430; J3475; J3480; J7040; J7050; J7799; P9012; P9016; P9035; P9045; P9047; P9059; Q9967; U0003